=== PATIENT | female | born 1945 | race Caucasian/White ===

== ENCOUNTER → 2018-07-26 12:44 | Outpatient (CLI) | payer MEDICARE, OTHER, SELFPAY | PROVIDERS: Family Provider Family Medicine; PCP Family Medicine; Visit Provider Family Medicine | DX: R20.2 Paresthesia of skin (principal); M54.30 Sciatica, unspecified side | CPT/HCPCS: 95886; 95909 ==

== ENCOUNTER → 2018-09-26 09:17 | Outpatient (CLI) | payer MEDICARE, OTHER, SELFPAY ==
[2018-09-26 10:22] LABS: Alanine Aminotransferase 37 IU/L (9-52); Albumin 4.2 g/dL (3.5-5.0); Albumin Globulin Ratio 1.5 (1.0-2.8); Alkaline Phosphatase 57 U/L (38-126); Aspartate Aminotransferase 38 IU/L (14-36); Bilirubin Total 0.8 mg/dL (0.2-1.3); Bilirubin Unconjugated 0.8 mg/dL (0.0-1.1); Blood Urea Nitrogen 20 mg/dL (7-17); Carbon Dioxide 30 mmol/L (22-32); Chloride 103 mmol/L (98-107); Estimated Glomerular Filt Rate > 60.0 mL/min (>60); Globulin 2.8 g/dL (1.7-4.1); Glucose 90 mg/dL (80-110); HEMOLYSIS < 15 (0-50); Potassium 4.3 mmol/L (3.4-5.1); Sodium 143 mmol/L (137-145)
== END ==
PROVIDERS: Family Provider Physician Assistant; PCP Family Medicine; Visit Provider Podiatrist
DX: B35.1 Tinea unguium (principal)
CPT/HCPCS: 36415; 80048; 80076; 85048

== ENCOUNTER → 2018-12-03 14:06 | Outpatient (CLI) | payer MEDICARE, OTHER, SELFPAY ==
--- NOTE | 2018-12-03 | DI.MG.S_ITS ---
BILATERAL DIGITAL SCREENING MAMMOGRAM 3D/2D WITH CAD: 12/03/2018 CLINICAL: Routine screening. Comparison is made to exams dated: [facility], 11/16/2016 mammogram - [facility], and 11/16/2015 [facility]. The tissue of both breasts is heterogeneously dense. This may lower the sensitivity of mammography. Current study was also evaluated with a Computer Aided Detection (CAD) system. There is a focal asymmetry with a spiculated margin in the right breast at 1 o'clock posterior depth. No other significant masses, calcifications, or other findings are seen in either breast. IMPRESSION: INCOMPLETE: NEEDS ADDITIONAL IMAGING EVALUATION The focal asymmetry in the right breast is indeterminate. Additional views with possible ultrasound are recommended. This exam was interpreted at Station ID: [id number]. NOTE: For mammograms, a report in lay terms will be sent to the patient. Approximately 15% of breast malignancies will not be visualized mammographically. In the management of a palpable breast mass, a negative mammogram must not discourage biopsy of a clinically suspicious lesion. Electronically Signed By: Laura espinoza/leatha:12/03/2018 16:14:30 copy to: Artemio Ying letter sent: Additional Imaging Needed ACR BI-RADS Category 0: Incomplete [id number]
== END ==
PROVIDERS: Family Provider Physician Assistant; PCP Family Medicine; Visit Provider Nurse Practitioner Family
DX: Z12.31 Encounter for screening mammogram for malignant neoplasm of breast (principal)
CPT/HCPCS: 77063; 77067

== ENCOUNTER → 2018-12-10 09:16 | Outpatient (CLI) | payer MEDICARE, OTHER, SELFPAY ==
--- NOTE | 2018-12-10 | DI.MG.S_ITS ---
UNILATERAL RIGHT DIGITAL DIAGNOSTIC MAMMOGRAM 3D/2D WITH ADDITIONAL VIEWS: 12/10/2018 CLINICAL: Additional evaluation requested from prior study. Comparison is made to exams dated: 12/03/2018 mammogram, 11/29/2017 mammogram - [facility], and 11/16/2016 mammogram - [facility]. The tissue of right breast is heterogeneously dense. This may lower the sensitivity of mammography. There is 1 cm oval equal density mass with a spiculated margin in the right breast at 2 o'clock posterior depth. No other significant masses or calcifications are seen in the breast. IMPRESSION: INCOMPLETE: NEEDS ADDITIONAL IMAGING EVALUATION The 1 cm oval equal density mass in the right breast is indeterminate. An ultrasound is recommended. This exam was interpreted at Station ID: [id number]. NOTE: For mammograms, a report in lay terms will be sent to the patient. Approximately 15% of breast malignancies will not be visualized mammographically. In the management of a palpable breast mass, a negative mammogram must not discourage biopsy of a clinically suspicious lesion. Electronically Signed By: Flavio wick/leatha:12/10/2018 09:55:56 copy to: Artemio Ying letter sent: Need Ultrasound ACR BI-RADS Category 0: Incomplete [id number]
--- NOTE | 2018-12-10 | DI.US.S_ITS ---
LIMITED ULTRASOUND OF RIGHT BREAST AND AXILLA: 12/10/2018 CLINICAL: Additional evaluation requested from prior study. Comparison is made to exams dated: 12/10/2018 mammogram, 12/03/2018 mammogram, 11/29/2017 mammogram - [facility], and 11/16/2016 mammogram - [facility]. Color flow and real-time ultrasound of the right breast 2 o'clock, and axilla regions were performed on the areas of interest. There is 0.8 cm x 0.5 cm x 0.7 cm oval solid mass with an indistinct margin in the right breast at 2 o'clock middle depth. This oval solid mass is hypoechoic with posterior acoustic shadowing. This correlates with mammography findings. Color flow imaging demonstrates that there is no vascularity present. No abnormalities were seen sonographically in the right axilla. IMPRESSION: HIGHLY SUGGESTIVE OF MALIGNANCY The 0.8 cm x 0.5 cm x 0.7 cm oval solid mass in the right breast is highly suggestive of malignancy. An ultrasound guided biopsy is recommended. The findings were discussed with the patient at the conclusion of the study by Dr. Manzo. This exam was interpreted at Station ID: [id number]. Electronically Signed By: Flavio Joy M.D. ddcris/:12/10/2018 17:07:46 copy to: Artemio Ying letter sent: Biopsy Required Ultrasound BI-RADS: 5 Highly suggestive of malignancy
== END ==
PROVIDERS: Family Provider Physician Assistant; PCP Family Medicine; Visit Provider Nurse Practitioner Family
DX: R92.8 Other abnormal and inconclusive findings on diagnostic imaging of breast (principal); N63.12 Unspecified lump in the right breast, upper inner quadrant
CPT/HCPCS: 76642; 77065; G0279

== ENCOUNTER → 2018-12-14 08:10 | Outpatient (CLI) | payer MEDICARE, OTHER, SELFPAY ==
--- NOTE | 2018-12-14 | PATH_ITS ---
[facility] Accession Number: [id number] . 01 Material submitted: . RIGHT BREAST MASS . 01 Diagnosis: A. Right Breast Mass, Biopsy: Invasive (ductal) carcinoma, grade 2 of 3 ([place] combined histologic grade, total score of 6/9). - Nuclear pleomorphism: Intermediate. (2/3) - Mitotic grade: Low. (1/3) - Tubular differentiation: Little. (3/3) - Size of invasive carcinoma: Present on multiple cores, single largest dimension of 0.6 cm. - Ductal carcinoma in situ: Present. i. Nuclear grade: Intermediate. ii. Necrosis: Not identified. - Calcifications: Present, in association with invasive carcinoma and ductal carcinoma in situ. - Lymphatic invasion: Absent in this specimen. - Prognostic markers: - Estrogen receptor: Positive (percentage of tumor cells stainin%, staining intensity: strong). - Progesterone receptor: Positive (percentage of tumor cells stainin%, staining intensity: moderate to strong). - HER2 status: Negative for protein overexpression by immunohistochemistry (1+). MRV/12/18/2018 . 01 Comment: Dr. Clayton's office (reported to Alisson Reyes) is notified of the preliminary findings in this case on 12/18/2018 at 4:00 pm. . 01 Electronically signed: Pito Morin MD, Pathologist NPI- [id number] . 01 Gross description: . Received in formalin, labeled US BX breast perc wvac device, RT breast mass, are multiple fragments of bright yellow and red-brown fatty tissue (2.5 x 1.4 x 0.1 cm in aggregate). Filtered and entirely submitted in cassette A1. Note: Approximate total fixation time in formalin-49 hours, calculated using a collection date of 12/14/2018 with a collection time of 0821. (:[id number]) /MRV . 01 Microscopic: . The biopsy demonstrates an infiltrating mammary ductal carcinoma involving breast tissue. Receptor studies were performed on sections from the main block A1 by immunohistochemistry, with appropriately staining external controls; Invasive carcinoma stains as follows: ESTROGEN RECEPTOR (SP1): Positive (percentage tumor cell stainin%, staining intensity: strong, internal controls positive). PROGESTERONE RECEPTOR (1E2): Positive (percentage tumor cell stainin%, staining intensity moderate to strong, internal controls positive). HER-2 (4B5) by immunohistochemistry: Negative for protein overexpression (1+). . TECHNICAL NOTE: Internal controls are positive (for all 3 markers). Cold ischemic time is <5 minutes. The scoring criteria for breast biomarkers by immunohistochemstry is based on the current ASCO/CAP guidelines (Corina et al, Arch Pathol Lab Med 2010: 134(6): 907-922 / Carlos Lopez al, Arch Pathol Lab Med 2014: 138(2): 241-256). Deparaffinized sections of formalin fixed tissue (along with appropriate positive controls) are incubated with the above antibody(s). Using the automated Kinmundy stainer, tissue is incubated with the designated antibody* which is then localized by a non-biotin, dual polymer detection system. The external controls are reviewed for appropriate reactivity and found to be adequate. Results on the target call population are indicated above. These tests have not been validated on decalcified tissue. * This test was developed and its performance characteristics determined by [facility]. It has not been cleared or approved by the U.S. Food and Drug Administration. The FDA has determined that such clearance or approval is not necessary. This test is used for clinical purposes. It should not be regarded as investigational or for research. . 01 Pathologist provided ICD-10: C50.911 . 01 CPT . 392249, 997020, 155054, 606308 Performed at: [address] [facility], [place], [place] [id number] MD Flavio Townsend MD Phone: [phone]
--- NOTE | 2018-12-14 | DI.US.S_ITS ---
ULTRASOUND GUIDED BIOPSY RIGHT BREAST USING VACUUM DEVICE WITH MARKING DEVICE INSERTED AND POST MAMMOGRAPHIC AND ULTRASOUND IMAGIN12/14/2018 CLINICAL: Right breast mass. PATIENT CONSENT: Risks (minor bleeding, infection, vasovagal reaction and repeat procedure), benefits and alternatives were explained to the patient and written informed consent was obtained. Correlation is made to exams dated: 12/10/2018 ultrasound, 12/10/2018 mammogram, 12/03/2018 mammogram, 11/29/2017 mammogram - [facility], 11/16/2016 mammogram - [facility], and 11/16/2015 mammogram - [facility]. An ultrasound guided biopsy using real-time ultrasound was performed for the concerning 0.8 cm x 0.5 cm x 0.7 cm indistinct oval solid mass located in the right breast at 2 o'clock middle depth. This was described on the previous mammography and ultrasound reports. The skin was prepped in the usual manner. Local anesthetic was administered to the access site. A skin naun was made in the breast. The abnormality was approached from the medial aspect. A 13 gauge biopsy needle was placed adjacent to the abnormality under ultrasound guidance. Once the needle was documented to be in the correct location, six specimens were obtained using the Mammotome biopsy system. The patient received additional local anesthetic during the procedure. A [employer] Vision clip was inserted into the biopsy cavity. A skin closure strip and a sterile dressing were applied to the access site. Post procedure mammographic and ultrasound imaging demonstrates the location device at the targeted area and partial removal of the abnormality. The specimens were sent to the laboratory for pathological analysis. IMPRESSION: ULTRASOUND GUIDED BIOPSY MALIGNANT Ultrasound guided biopsy of the 0.8 cm x 0.5 cm x 0.7 cm solid mass in the right breast at 2 o'clock middle depth was successful. 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 Pathology results are concordant with imaging findings. This exam was interpreted at Station ID: [id number]. Meño Echevarria M.D. [facility],at/:12/21/2018 01:14:15 copy to: Artemio Ying
--- NOTE | 2018-12-14 11:00 | DI.MG.S_ITS ---
Patient Name: ANIBAL AYALA date: 1945 Sex: F Attending Physician: Indications: Date: 12/14/2018 08:25 At the request of: MEGAN HOFFMAN Procedure: MM diagnostic mammo [id number] UNILATERAL RIGHT DIGITAL DIAGNOSTIC MAMMOGRAM POST-NEEDLE BIOPSY: 12/14/2018 CLINICAL: Right breast mass. Comparison is made to exams dated: 12/10/2018 mammogram, 12/03/2018 mammogram, and 11/29/2017 mammogram - [facility]. The tissue of right breast is heterogeneously dense. This may lower the sensitivity of mammography. There is a [employer] marker clip in the appropriate position in the right breast at 2 o'clock middle depth. This marker clip placement is at the biopsy site. IMPRESSION: POST PROCEDURE MAMMOGRAM FOR MARKER PLACEMENT There was a successful marker clip placement in the right breast middle depth. Pathology results are pending. This exam was interpreted at Station ID: [id number]. NOTE: For mammograms, a report in lay terms will be sent to the patient. Approximately 15% of breast malignancies will not be visualized mammographically. In the management of a palpable breast mass, a negative mammogram must not discourage biopsy of a clinically suspicious lesion. Electronically Signed By: Meño Manzo M.D. sdh/:12/14/2018 17:31:37 copy to: Artemio Ying ACR BI-RADS Category Post-procedure mammogram for marker placement Continued Report - Page 2 of 2 Patient Name: ANIBAL AYALA date: 1945 Sex: F Attending Physician: Indications: Date: 12/14/2018 08:25 At the request of: MEGAN HOFFMAN Procedure: MM diagnostic mammo [id number]
== END ==
PROVIDERS: PCP Family Medicine; Visit Provider Nurse Practitioner Family
DX: C50.211 Malignant neoplasm of upper-inner quadrant of right female breast (principal); Z17.0 Estrogen receptor positive status [ER+]
CPT/HCPCS: 19083; 77065; 88305; 88360

== ENCOUNTER → 2019-01-25 10:15 | Outpatient (CLI) | payer MEDICARE, OTHER, SELFPAY ==
--- NOTE | 2019-01-25 | DI.RAD.S_ITS ---
This blank DEXA report has been sent in error by the PACS system. The correct and complete report will be forthcoming in 1-2 days. Thank you for your patience and understanding. Dictated by: Wayne Chu M.D. on 01/25/2019 at 13:07 Approved by: Wayne Chu M.D. on 01/25/2019 at 13:11
== END ==
PROVIDERS: PCP Family Medicine; Visit Provider Internal Medicine Rheumatology
DX: M81.0 Age-related osteoporosis without current pathological fracture (principal); Z78.0 Asymptomatic menopausal state; Z85.3 Personal history of malignant neoplasm of breast
CPT/HCPCS: 77080

== ENCOUNTER 2019-01-31 07:01 | Day surgery (SDC) | payer MEDICARE, OTHER, SELFPAY ==
[2019-01-21 08:23] VITALS: BMI 21.6
[2019-01-31] VITALS (7 sets, daily range): BP systolic 88–121; BP diastolic 46–76; PULSE 56–81; RESP 9–16; TEMP 36.1–36.7; O2SAT 95–100; BMI 20.9
--- NOTE | 2019-01-31 | DI.MG.S_ITS ---
SPECIMEN: 01/31/2019 CLINICAL: Right breast specimen. Correlation is made to exams dated: 01/31/2019 mammogram, 12/14/2018 ultrasound biopsy, 01/31/2019 localization, 12/14/2018 mammogram, 12/10/2018 ultrasound, and 12/10/2018 mammogram - [facility]. The specimen contains the targeted mass and localizing wire, as well as the targeted biopsy clip. IMPRESSION: SPECIMEN The specimen contains the targeted mass and localizing wire, as well as the targeted biopsy clip. Findings were discussed with Operating Room Nurse Jemma Bull by telephone by Dr. Holman at approximately 11:25 am on 01/31/2019, who conveyed the results to referring provider Dr. Khanh Turpin. This exam was interpreted at Station ID: [id number]. Nahum Holman M.D. ecl/:01/31/2019 11:38:15 copy to: Artemio Ying
--- NOTE | 2019-01-31 | DI.MG.S_ITS ---
UNILATERAL RIGHT DIGITAL DIAGNOSTIC MAMMOGRAM POST-NEEDLE BIOPSY: 01/31/2019 CLINICAL: Right breast cancer. Comparison is made to exams dated: 12/14/2018 ultrasound biopsy, 12/14/2018 mammogram, 12/10/2018 ultrasound, and 12/10/2018 mammogram - [facility]. The tissue of right breast is heterogeneously dense. This may lower the sensitivity of mammography. Post wire localization/ placement digital mammographic imaging was obtained and demonstrates the stiffener portion of the K[place] wire being immediately adjacent to the previously placed biopsy clip and passing through the targeted mass in the upper inner right breast. IMPRESSION: POST PROCEDURE MAMMOGRAM FOR MARKER PLACEMENT Post wire localization/ placement digital mammographic imaging was obtained and demonstrates the stiffener portion of the Kopans wire being immediately adjacent to the previously placed biopsy clip and passing through the targeted mass in the upper inner right breast. This exam was interpreted at Station ID: [id number]. NOTE: For mammograms, a report in lay terms will be sent to the patient. Approximately 15% of breast malignancies will not be visualized mammographically. In the management of a palpable breast mass, a negative mammogram must not discourage biopsy of a clinically suspicious lesion. Electronically Signed By: Nahum Holman M.D. ecl/:01/31/2019 11:34:19 copy to: Artemio MARTINEZ BI-RADS Category Post-procedure mammogram for marker placement
--- NOTE | 2019-01-31 | PATH_ITS ---
[facility] Accession Number: [id number] . 01 Material submitted: . PART A: breast - RIGHT BREAST MASS PART B: breast - RIGHT BREAST TISSUE NEAR TIP OF WIRE PART C: lymph node - RIGHT AXILLA, SENTINEL NODE #[id number] PART D: axilla - ADDITIONAL RIGHT AXILLARY TISSUE WITH NODES . 01 Clinical history: . A: LONG STITCH IS MEDIAL,SHORT STITCH IS SUPERIOR. TO RADIOLOGY THEN PATHOLOGY . 01 Diagnosis: A. Right Breast Mass, Lumpectomy: Invasive (ductal) carcinoma, grade 2 of 3 ([place] combined histologic grade, total score is 6/9): - Tumor size (invasive component): 1.0 cm, by microscopic measurement. - Nuclear pleomorphism: High. (3/3) - Mitotic rate: Low. (1/3) - Tubular differentiation: Moderate degree. (2/3) - Ductal carcinoma in situ (DCIS): i. Present. - Nuclear grade: Intermediate. - Necrosis: Present (comedo). ii. Extent: Present within tissue slices 6 and 8-11, spanning approximately 1.4 cm. - Calcifications: Present (in association with DCIS). - Lymphatic invasion: Not identified. - Resection margins: i. Invasive carcinoma: Negative; 0.4 cm from the anterior margin, 0.4 cm from the posterior margin, and more than 1 cm from the remaining margins. ii. DCIS: Negative, but very close to two margins: Less than 0.1 cm from the posterior margin (slice 9, discontinuously over a linear stretch of 0.3 cm), less than 0.1 cm from the lateral margin (slice 10, discontinuously over a linear stretch of 0.2 cm, see comment), 0.5 cm from the anterior margin, and more than 1 cm from the remaining margins. - Prognostic markers performed on prior biopsy ([facility] [id number]) i. Estrogen receptor: Positive. Progesterone receptor: Positive. HER-2 status: Negative for protein overexpression by IHC. - Regional lymph node status (see parts C and D below): 7 lymph nodes (including 3 sentinel lymph nodes), negative for malignancy. - Additional findings: Skin and nipple/areolar complex: Not present. Skeletal muscle: Not present. Biopsy site: Present. - Other findings: Flat epithelial atypia, apocrine metaplasia, focal usual ductal hyperplasia, columnar cell change/hyperplasia, and microcysts. - Pathologic stage: pT1b pN0 . B. 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 Extent: Spanning two slices, up to 0.8 cm in linear extent. Margins: Present at cauterized tissue edges. . C. Right Axilla [place] Lymph Nodes, Excisional Biopsy: Three sentinel lymph nodes, negative for malignancy (0/3). . D. Additional Right Axillary Tissue With Nodes, Dissection: Four lymph nodes, negative for malignancy (0/4). NHT/02/06/2019 . 01 Comment: Part A. In the lumpectomy specimen, within the area of definite DCIS that is approaching the lateral margin, cauterized possible DCIS is present less than 0.5 mm away from the lateral margin; however, extensive cautery artifact limits definite histologic assessment. Part B. The specimen labeled tissue near tip of wire is unoriented, hence it is difficult to determine which margin is involved by the residual DCIS. Clinical correlation is necessary. . 01 Electronically signed: Pito Morin MD, Pathologist NPI- [id number] . 01 Gross description: . (A) Received: In formalin, labeled right breast mass, long stitch is medial, short stitch is superior. Specimen: One right partial mastectomy. Weight: 29 grams. Measurement: 2.4 cm anterior to posterior, 5.0 cm medial to lateral, and 5.3 cm superior to inferior. Skin Ellipse: Absent. Wire: Present, penetrating at the central medial anterior aspect and terminating in the central lateral side. Margins: Oriented by surgeon with short superior suture, long medial suture, and inked as follows: posterior=black; anterior=purple; superior=blue; inferior=green; medial=yellow; lateral=orange. Sliced: Superior to inferior into 19 slices. Lesion: 1. Description: Brennan-white solid firm irregular mass with a fer-shaped biopsy clip identified in slice #9. Size: 1.0 x 1.0 x 0.8 cm. Slices Involved: Slices #8 through #11. Biopsy Site: Absent. Distance to Margins: 0.6 cm from the anterior margin, 0.5 cm from the posterior margin, 2.1 cm from the superior margin, 2.3 cm from the inferior margin, 1.6 cm from the medial margin, and 2.5 cm from the lateral margin. Other: A fibrous cystic area (2.2 x 1.7 x 0.7 cm) is identified within slices #2 through #11 involving the lateral resection margin. This area is 1.6 cm from the mass. The remaining parenchyma is yellow lobulated adipose tissue. No additional discrete masses or lesions are grossly identified. Fixation Time: The specimen was placed in formalin on 01/31/2019 with no time given. The approximate total fixation time is calculated to be 69 hours and 30 minutes. Sections: A1: Slice 1, sales representative publications superior end of specimen, perpendicular. A2: Slice 3, bisected, lateral half. A3: Slice 5, bisected, lateral half. A4-A5: Slice 6, entirely submitted (lateral margin in A5). A6-A7: Slice 7, entirely submitted, adjacent to mass,end of loc wire. A8: Slice 8 with mass, lateral margin, involved by localization wire. A9-A10: Slice 9 with mass (medial two-thirds, sales representative publications sections, A9 represents closest medial margin), biopsy site. A11: Slice 10 with mass, lateral half. A12: Slice 11, lateral half. A13-A14: Slice 12, inferior to mass, entirely submitted. A15: Slice 19 (inferior end of specimen, perpendicular, repr.) A16: Slice 8, entirely submitted (medial margin). A17: Slice 9, entirely submitted (lateral margin). A18: Slice 10, entirely submitted (medial margin). A19: Slice 11, entirely submitted (medial margin). A20: Slice 1, remainder. A21: Slice 2, remainder. A22: Slice 4, sales representative publications. A23: Slice 13, sales representative publications. A24: Slice 14, sales representative publications. A25: Slice 16, entirely submitted. A26: Slice 17, entirely submitted. A27: Slice 19, remainder. Note: This specimen has been reviewed by Dr. Yenny Morin. . (B) Received in formalin, labeled tissue near tip of wire, right breast, is an unoriented piece of densely fibrous and fatty tissue (1 gram, 3.0 x 1.7 x 0.7 cm) with no overlying skin. The tissue is inked black and serially sectioned into eight slices. The cut surface is brennan-white and smooth. No nodules, masses or lesions are identified. Sections: (B1) slice 1, perpendicular; (B2) slices 2 and 3; (B3) slices 4 and 5; (B4) slices 6 and 7; (B5) slice 8, perpendicular. The specimen is entirely submitted. (C) Received in formalin, labeled right axilla sentinel node #[id number], are multiple pieces of sheridan-yellow adipose tissue (3.2 x 1.8 x 0.5 cm) containing multiple lymph nodes (0.5 x 0.4 x 0.3 cm-1.3 x 0.8 x 0.4 cm). Sections: (C1) one bisected lymph node; (C2) one trisected lymph node; (C3) one serially sectioned lymph node. (D) Received in formalin, labeled additional R axillary tissue with nodes, are multiple pieces of sheridan-yellow adipose tissue (4.3 x 2.7 x 1.2 cm in aggregate) containing multiple possible lymph nodes (0.2 x 0.1 x 0.1 cm-1.2 x 0.7 x 0.5 cm). Cassettes: (D1) multiple intact possible lymph nodes; (D2) one serially sectioned lymph node. (JM:[id number]) (MT:[id number]) /[facility] . 01 Pathologist provided ICD-10: C50.911 . 01 CPT . 658001, 476683, [id number], 399568 Performed at: 01 [facility] [address], [place], [place] [id number] MD Flavio Townsend MD Phone: [phone]
--- NOTE | 2019-01-31 07:05 | DI.NM.S_ITS ---
PROCEDURE: NM SENTINEL NODE W IMAGING RADIOPHARMACEUTICAL: 1.0 mCi Millipore filtered Tc-99m sulfur colloid. INDICATIONS: sentinel node mapping pre biopsy right breast TECHNIQUE: The area around the nipple was prepped and draped in a sterile fashion. Tc-99m sulfur colloid was injected intra-dermally in the outer edge of the areola in the right breast. Images were obtained subsequently. A body contour outline was obtained. FINDINGS: There is/are two lymph node(s) in the ipsilateral axilla, which is marked on the skin and the images for referring physician. IMPRESSION: Administration of radiotracer into the right breast periareolar region for intra-operative sentinel lymph node localization. Dictated by: Martha Valdes MD, PhD on 01/31/2019 at 9:15 Approved by: Martha Valdes MD, PhD on 01/31/2019 at 9:17
--- NOTE | 2019-01-31 07:05 | DI.US.S_ITS ---
ULTRASOUND GUIDED WIRE LOCALIZATION RIGHT BREAST WITH POST DIGITAL MAMMOGRAPHIC IMAGIN01/31/2019 CLINICAL: Pre op wire localization with ultrasound. Correlation is made to exams dated: 01/31/2019 mammogram, 12/14/2018 ultrasound biopsy, 12/14/2018 mammogram, 12/10/2018 ultrasound, 12/10/2018 mammogram, and 12/03/2018 mammogram - [facility]. A wire localization using ultrasound guidance was performed for the concerning mass located in the right breast at 2 o'clock. This was described on the previous ultrasound report. The skin was prepped in the usual manner. 5 mL of 1% lidocaine and 5 mL of 1% lidocaine with epinephrine were used for local anesthesia. The localization was approached from the medial aspect. A 7 cm Kopans hook wire was inserted through the targeted mass adjacent to the echogenic biopsy marker under ultrasound guidance. A skin adhesive was applied to the access site. Post placement digital mammographic imaging was obtained and demonstrates the stiffener portion of the Kopans wire immediately adjacent to the previously placed biopsy clip through the targeted mass. IMPRESSION: WIRE LOCALIZATION Wire localization for the mass in the right breast at 2 o'clock was successful with no apparent post procedure complications. This exam was interpreted at Station ID: [id number]. Nahum Holman M.D. ecl/:01/31/2019 11:31:02 copy to: Artemio Ying
--- NOTE | 2019-01-31 10:01 | SUR.OPER ---
Supine on padded OR bed, head on pillow, arms secured on padded arm boards at <90 degrees abduction, legs uncrossed, safety belt at thigh, tape over blanket over lower legs.
--- NOTE | 2019-01-31 10:25 | PM.PREOP ---
Pre-operative Note Interval Note History & Physical reviewed/Exam performed by Physician: Yes Changes to H&P: Yes H&P completed within 30 days and has changed as indicated here:: Successful needle location sentinel node mapping performed
[2019-01-31] MEDS: CEFAZOLIN 2 GM/100 ML FROZ.PIGGY IV (10:32)
[2019-01-31] MEDS: BUPIVACAINE 0.5% (PF) VIAL 30 ML INJ (10:52)
--- NOTE | 2019-01-31 11:06 | SUR.OPER ---
GLASSES IN LABELED CONTAINER TO PACU WITH PATIENT
--- NOTE | 2019-01-31 12:24 | P.OP_ITS ---
Operative Date/Time/Diagnoses Date of procedure: 01/31/19 Time of procedure: 12:15 Pre-op diagnosis: Right-sided breast cancer Post-op diagnosis: same Procedure & Clinicians Procedure: Needle localization and lumpectomy with sentinel node biopsy right breast Same procedure as scheduled: Yes Indications: Breast cancer right breast. Patient opted for breast conservation therapy Surgeon: Khanh Turpin Click Yes if Unassisted: Yes Anesthesia Type: General Operative Notes Findings: Specimen contained clip and needle. Two sentinel nodes removed. additional alyssa tissue also removed adjacent to the sentinel nodes. Closure Type: primary Specimen(s): other (Breast mass and axillary nodes) Prosthetic devices, grafts, tissues, transplants, or devices: None Estimated Blood Loss (mL): 10 Blood products transfused: none Procedure in detail: The patient is placed supine on the operating room table underwent general LMA anesthesia. She was prepped and draped in the usual fashion taking great care not to dislodge the needle. Curvilinear incision was made medial to the needle insertion overlying the breast abnormality and clip. Was carried down into the immediate subcu and staying in that layer I dissected all along the anterior wall of the breast trying to stay at a breast tissue. Using the needle as a guide and then dissected down and removed a portion of the pectoralis fascia with specimen. As the needle tip was right at the edge of my specimen I took a small amount of tissue adjacent to it. I then mobilized breast tissue in order to close the space. I released the skin overlying it to remove a pucker. The subcu was closed with interrupted 3 0 Vicryl. The skin was closed running 4 0 Vicryl subcuticular stitch and attention was then turned to the axilla. Local anesthetic was infiltrated and a transverse incision made across the axilla below the hair-bearing area. Was carried down into the axilla proper. Using the Navigator probe as a guide I removed at least 2 sentinel nodes. The counts on these at 10 seconds were just over 7700 and 1100. Careful examination of the axilla failed to reveal any other areas that had counts greater than 77. I removed some additional tissue adjacent to these nodes and though there was no counts in them there were visible nodes and I submitted this tissue separately. Hemostasis was achieved. The axilla was closed with interrupted 3 0 Vicryl. The subcu was closed with interrupted 3 0 Vicryl. The skin was closed with a running 4 0 Vicryl subcuticular stitch. The wounds were cleaned and Steri- Strips along with Mastisol applied. dressings were applied the patient was awakened and extubated taken recovery area in good condition. Complications: none Condition: stable Disposition: PACU Plan for aftercare: Follow-up in the office
== END 2019-01-31 13:39 | disposition home or self-care (01) ==
PROVIDERS: PCP Family Medicine; Visit Provider Specialist
PROC: (CPT 19301; principal; 2019-01-31 10:30)
DX: C50.911 Malignant neoplasm of unspecified site of right female breast (principal); Z17.0 Estrogen receptor positive status [ER+]
CPT/HCPCS: 19301; 38500; 19285; 76098; 77065; 78195; 88305; 88307; A9541; J0690; J1100; J1885; J2250; J2405; J2704; J3010

== ENCOUNTER 2019-02-20 06:42 | Day surgery (SDC) | payer MEDICARE, OTHER, SELFPAY ==
[2019-02-14 10:54] VITALS: BMI 21.6
--- NOTE | 2019-02-20 | PATH_ITS ---
[facility] Accession Number: [id number] . 01 Material submitted: . PART A: breast - RIGHT BREAST TISSUE PART B: breast - RIGHT BREAST ADDITIONAL LATERAL MARGINS . 01 Clinical history: . A: LONG STITCH LATERAL, SHORT STITCH SUPERIOR B: ADDITIONAL LATERAL MARGINS STITCH HERNANDEZ EDGE OF BIOPSY . 02 Diagnosis: A. Right Breast Tissue, Reexcision: Residual ductal carcinoma in situ with the following features: Extent: At least 8 mm (measured on slide A19, involving 2 of 22 blocks of this entirely submitted specimen. Architectural pattern: Cribriform. Nuclear grade: Intermediate. Necrosis: Not identified. Margins: Please see comment. Extensive surgical site changes present. Negative for invasive carcinoma. . B. Right Breast, Additional Lateral Margins, Reexcision: Residual ductal carcinoma in situ with the following features: Extent: At least 4 mm (slide B10) involving 2 of 10 blocks of this entirely submitted specimen. Architectural pattern: Cribriform and comedo. Nuclear grade: Intermediate. Necrosis: Present, comedo. Margins: DCIS is free of lateral margin by 1 mm, spanning 1 mm. Negative for invasive carcinoma. [facility]/02/26/2019 . 02 Comment: Part A) Given the additionally submitted lateral margin (part B), the DCIS seen in part A is widely free of margins (at least 10 mm). . 02 Electronically signed: . Luis Enrique Saldana MD, PhD, Pathologist NPI- [id number] . 01 Gross description: . (A) Received: In formalin, labeled right breast tissue, long stitch lateral, short stitch superior. Specimen: Right partial mastectomy: Weight: 16 grams. Measurement: 5.5 cm anterior to posterior, up to 4.5 cm superior to inferior. Skin ellipse: Present, measuring 3.6 x 0.7 cm. Wire: Absent. Margins: Oriented by surgeon with short superior suture, long lateral suture, and inked as follows: posterior=black; superior=blue; inferior=green; medial=yellow; lateral=orange. Sliced: Anterior to posterior into 14 slices. Lesions: No nodules, masses or lesions are identified. Other: The parenchyma is densely fibrous with a diffusely gritty texture. A minimal amount of lobulated adipose tissue is present. The skin is sheridan-white and contains a linear scar from tip to tip. Fixation time: The specimen was placed in formalin on 02/20/2019 with no time given. The approximate total fixation time is calculated to be 34 hours 30 minutes. Sections: A1-A2: Slice 1, anterior end of specimen, perpendicular. A3: Slice 2, bisected. A4: Slice 3, bisected. A5: Slice 4, bisected. A6-A7: Slice 5, bisected and submitted superior to inferior. A8-A9: Slice 6, bisected and submitted superior to inferior. A10-A11: Slice 7, bisected and submitted superior to inferior. A12-A13: Slice 8, bisected and submitted superior to inferior. A14-A15: Slice 9, bisected and submitted superior to inferior. A16-A17: Slice 10, bisected and submitted superior to inferior. A18: Slice 11. A19: Slice 12. A20: Slice 13. A21-A22: Slice 14, posterior end of specimen, perpendicular. (B) Received: In formalin, labeled right breast additional lateral margins, stitch hernandez edge of biopsy. Specimen=Right partial mastectomy. Weight: 4 grams. Measurement: 4.0 x 2.5 x 0.9 cm. Skin ellipse: Absent. Wire: Absent. Margins: Oriented by suture with suture marking edge of biopsy, and inked as follows: edge of biopsy=black; opposite side/presumed new lateral margin=orange. Sliced: Along the long axis into 10 slices. Lesions: No nodules, masses or lesions are identified. Other: The parenchyma is densely fibrous. Fixation time: The specimen was placed in formalin on 02/20/2019 with no time given. Approximate total fixation time is calculated to be 34 hours 30 minutes. Sections: B1: Slice 1, perpendicular. B2: Slice 2. B3: Slice 3. B4: Slice 4. B5: Slice 5. B6: Slice 6. B7: Slice 7. B8: Slice 8. B9: Slice 9. B10: Slice 10, perpendicular. (JM:[id number]) /[facility]V . 02 Pathologist provided ICD-10: D05.10 . 02 CPT . 102208, [id number] Performed at: 01 [facility] [address] [place] [address], [place], [place] [id number] MD Flavio Townsend MD Phone: [phone] Performed at: 02 [facility] [address] [place] [id number] MD Josefina Bryant MD Phone: [phone]
[2019-02-20 07:05] VITALS: BP 120/60; PULSE 88; RESP 15; TEMP 36.5; O2SAT 97; BMI 21.6
[2019-02-20] MEDS: LACTATED RINGERS 1,000 ML 42 ML IV ×2 (07:13→09:32)
--- NOTE | 2019-02-20 08:57 | PM.PREOP ---
Pre-operative Note Interval Note History & Physical reviewed/Exam performed by Physician: Yes Changes to H&P: Yes H&P completed within 30 days and has changed as indicated here:: see notes 01/31 and 02/13. Patient's lungs remain clear. Heart RRR. biopsy sites without cellulitis.
[2019-02-20] MEDS: CEFAZOLIN 2 GM/100 ML FROZ.PIGGY IV (09:02)
--- NOTE | 2019-02-20 09:18 | SUR.OPER ---
Supine on padded OR bed, head on pillow, arms secured on padded arm boards at <90 degrees abduction, legs uncrossed, safety belt at thigh, tape over blanket over lower legs.
[2019-02-20] MEDS: BUPIVACAINE 0.5% (PF) VIAL 30 ML INJ (09:33)
[2019-02-20 09:55] VITALS: BP 120/68; PULSE 78; RESP 18; TEMP 36.6; O2SAT 99
--- NOTE | 2019-02-20 09:56 | PM.OP.1 ---
Operative Date/Time/Diagnoses Date of procedure: 02/20/19 Time of procedure: 09:56 Pre-op diagnosis: Positive DCIS margin on prior lumpectomy Post-op diagnosis: same Procedure & Clinicians Procedure: Reexcision of biopsy site Same procedure as scheduled: Yes Indications: Positive margin on lumpectomy specimen Surgeon: Khanh Turpin Click Yes if Unassisted: Yes Anesthesia Type: General Operative Notes Findings: The removed entire lateral wall and additional tissue was well. included posterior wall in specimen. Muscle wall exposed. Clips applied at margins of muscle and biopsy cavity Closure Type: primary Specimen(s): other (Breast tissue including elipse of skin) Prosthetic devices, grafts, tissues, transplants, or devices: None Estimated Blood Loss (mL): 15 Procedure in detail: The patient is placed supine on the operating room table underwent general LMA anesthesia. She was prepped and draped in the usual fashion. Ellipse was made around the prior incision and carried into the subcu tissues. Using entirely sharp dissection the entire wall (with the thickest portion principally medially) and posterior of the prior biopsy cavity was removed. meticulous hemostasis was achieved. clips were placed at the muscle margins of the resection. They were also placed at the new margin of the lumpectomy site. The space was closed with interrupted 3 0 Vicryl. the skin was closed with a running 4 0 Vicryl subcuticular stitch and Steri-Strips. Dressing was applied. Patient tolerated the procedure well. local anesthetic was infiltrated around the incision at conclusion. Complications: none Condition: stable Disposition: PACU Plan for aftercare: Follow-up in the office
[2019-02-20 10:00] VITALS: BP 106/68; PULSE 64; RESP 10; O2SAT 98
[2019-02-20 10:05] VITALS: BP 109/66; PULSE 61; RESP 8; O2SAT 99
[2019-02-20 10:24] VITALS: BP 130/78; PULSE 77; RESP 11; TEMP 36.5; O2SAT 99
[2019-02-20] MEDS: HYDROCODONE/ACET 5/325 TABLET 1 TAB PO (10:30)
[2019-02-20 10:40] VITALS: BP 128/77; PULSE 77; RESP 12; TEMP 36.6; O2SAT 98
--- NOTE | 2019-02-20 10:57 | SUR.PHASEII ---
PT GIVEN PAIN PILL FOR C/O STINGING A LITTLE BIT STATES PAIN IS TOLERABLE AND EXPRESSED DESIRE TO GO HOME, TOLERATING ORAL FLUIDS, D/C INSTRUCTIONS REVIEWED WITH PT AND FAMILY MEMBER WITH VERBALIZED UNDERSTANDING.
== END 2019-02-20 10:56 ==
LOC: OR 06:44
PROVIDERS: PCP Family Medicine; Visit Provider Specialist
PROC: (CPT 19301; principal; 2019-02-20 07:45)
DX: D05.11 Intraductal carcinoma in situ of right breast (principal); G62.9 Polyneuropathy, unspecified
CPT/HCPCS: 19301; 88307; J0690; J1100; J2405; J2704; J3010

== ENCOUNTER → 2019-05-18 08:13 | Outpatient (CLI) | payer MEDICARE, OTHER, SELFPAY ==
[2019-05-18 08:48] LABS: Hemoglobin A1C% w Est Avg Glu 5.5 % (4.0-6.0)
[2019-05-18 08:56] LABS: Alanine Aminotransferase 31 IU/L (9-52); Albumin 4.5 g/dL (3.5-5.0); Albumin Globulin Ratio 1.5 (1.0-2.8); Alkaline Phosphatase 61 U/L (38-126); Aspartate Aminotransferase 31 IU/L (14-36); BUN Creatinine Ratio 31.3 (6-22); Bilirubin Total 0.7 mg/dL (0.2-1.3); Blood Urea Nitrogen 25 mg/dL (7-17); Calcium 9.4 mg/dL (8.4-10.2); Carbon Dioxide 30 mmol/L (22-32); Chloride 103 mmol/L (98-107); Cholesterol 186 mg/dL (140-199); Creatinine Urine Random 178.6 mg/dL; Estimated Glomerular Filt Rate > 60.0 mL/min (>60); Glucose 99 mg/dL (80-110); HDL Cholesterol 80 mg/dL (40-60); HEMOLYSIS < 15 (0-50); LDL Cholesterol Calculated 94 mg/dL (<100); Potassium 4.1 mmol/L (3.4-5.1); Protein (Total) Urine Random 8 mg/dL (0-12); Protein Creatinine Ratio Urine 0.04 GRAM/24H; Sodium 140 mmol/L (137-145); Total Protein 7.5 g/dL (6.3-8.2); Triglycerides 62 mg/dL (35-150); VLDL Cholesterol Calculated 12 mg/dL (2-30)
== END ==
PROVIDERS: PCP Family Medicine; Referring Provider Internal Medicine; Visit Provider Family Medicine
DX: R73.03 Prediabetes (principal)
CPT/HCPCS: 36415; 80053; 80061; 82570; 83036; 84156

== ENCOUNTER → 2019-10-09 11:20 | Oncology outpatient (ONC) | payer MEDICARE, OTHER, SELFPAY ==
[2018-12-26 08:46] VITALS: BP 122/72; PULSE 72; RESP 18; TEMP 36.6; O2SAT 100
--- NOTE | 2018-12-26 09:30 | ONC.SCHED ---
Patient to call with surgery date after 01/14 Papi consult.
--- NOTE | 2018-12-26 09:37 | P.CONONC_ITS ---
History of Present Illness - Data of Consult Consult date: 12/26/18 Primary Care Provider: Artemio Ying MD - Consult Narrative Narrative: Diagnosis: Right breast cancer, clinically T1b N0 ER/OH positive, HER2 negative History of present illness: Sara Murphy is a 73 year old female who is referred for further evaluation newly diagnosed breast cancer. Patient reports that she had been feeling quite well and had no specific complaints. She had a screening mammogram done that showed an abnormality in the right breast. An ultrasound confirmed lesion at the 2 o'clock position that measured about 8 mm in size. A ultrasound-guided biopsy was obtained on December 14. Pathology showed an invasive ductal carcinoma grade 2. It was ER positive and OH positive. HER2 was negative. She is scheduled to meet with a surgeon in on January 14. She otherwise has been feeling well. She denies any new aches or pains. She has not noted any adenopathy. No shortness of breath or cough. No GI complaints. She has been using some vaginal estrogen about once a week. In the past, she did take by identical hormones. Her past medical history is notable for osteopenia. She did have a prior D&C many years ago. She has otherwise been quite healthy. She currently is on no prescription medications but does take some calcium vitamin D and a bone supplement. She reports allergy to alendronate and to an antifungal drugs that she took for her toe nails Family history is notable for a father with bladder cancer at age 90. Her father also had skin cancer. Social history: She is . She is retired teacher. She does not smoke or use alcohol. CC: Jigar Glover MD Home Medications and Allergies Home Medications Medication Instructions Recorded Confirmed Type cholecalciferol (vitamin D3) 1,000 #0 12/13/17 History estradiol [Climara] #0 12/13/17 History calcium-vits M5-S-C2-minerals 1 tab PO DAILY 12/26/18 12/26/18 History [Bone Essentials] cyclosporine [Restasis] 12/26/18 History Allergies Allergy/AdvReac Type Severity Reaction Status Date / Time No Known Allergies Allergy Uncoded 02/07/18 11:49 Medical History - Social History Smoking Status: Never smoker Substance Use Type: does not use Alcohol Intake Frequency: 0-2 drinks per day Current Occupational Status: retired Exam Vital signs: Vital Signs Temp Pulse Resp BP Pulse Ox 12/26/18 08:46 98 F 72 18 122/72 100 Intake and Output 12/25/18 12/26/18 12/26/18 23:59 07:59 15:59 Other: Weight 54.9 kg Patient Weight 12/27/18 07:59 Weight 54.9 kg - Constitutional positive no acute distress, positive average body habitus - Routine HEENT Exam Head: Present: normocephalic, atraumatic Eye: Present: EOMI, PERRL. Absent: conjunctival icterus, scleral injection ENT: Present: mucous membranes moist, oropharynx clear - Routine Neck Exam Present: supple. Absent: lymphadenopathy, thyromegaly - Routine Chest/Breast/Axilla Exam Axillae: Absent: lymphadenopathy Comments: In the right breast, she has an area of ecchymoses in the upper inner quadrant. There is a small nodule that is palpable. It is hard to tell if this is hematoma or her tumor. I do not feel any axillary adenopathy. - Routine Respiratory Exam Present: Clear to auscultation bilaterally. Absent: rales, wheezes - Routine Cardiovascular Exam Present: RRR, S1, S2. Absent: murmur - Routine Abdominal Exam Present: soft, normoactive bowel sounds. Absent: tenderness, organomegaly, mass - Routine Extremities Exam Absent: cyanosis, clubbing, edema - Routine Back/Spine Exam Back/Spine: Absent: paraspinal tenderness, vertebral tenderness - Routine Skin Exam Present: intact. Absent: petechiae, rash - Routine Neurological Exam Present: alert, oriented X3 - Routine Psychiatric Exam Present: normal affect, normal thought process Results - Imaging Additional studies: Procedures Closed [endoscopic] biopsy of large intestine (12/12/13) Assessment and Plan (1) Breast cancer Current visit: Yes Status: Acute 73-year-old woman with a new diagnosis of small ER positive breast cancer. Clinically, it appears to be T1b N0. She does have an appointment in 2-3 weeks with a surgeon. I suspect that she will be a candidate for lumpectomy followed by radiation. I did explain that mastectomy was an option for patients to desired it or who for whatever reason did not want radiation. With regards to systemic therapy, I do not believe that she will need chemother apy unless she were found to have a positive sentinel node. Instead, adjuvant hormone therapy would be recommended. I a reviewed the options of tamoxifen or aromatase inhibitors. We talked about the risk for blood clotting and endometrial problems with tamoxifen as well as the risk for worsening osteoporosis with aromatase inhibitors. I explained that in generally II his inhibitors were better tolerated and slightly more effective than tamoxifen in her usual 1st choice. She does have a history of osteoporosis. If that worsens, she may benefit from IV bisphosphonate or perhaps Prolia. She has been using some topical estrogen and I recommended that she stop this. She will return to clinic here after her surgery. Will review her pathology at that time.
--- NOTE | 2019-03-14 10:57 | ONC.SCHED ---
Patient wanted it noted in her file that she has Osteopenia and Osteoporosis. Msg sent to Dr. Glover. Also patient starting Rad Onc mapping next week
[2019-06-11 13:21] VITALS: BP 106/60; PULSE 83; RESP 18; TEMP 36.6; O2SAT 96
--- NOTE | 2019-06-11 14:04 | ONC.PN ---
PN -Subjective Interval history: Right breast cancer, T1b N0 ER/MA positive, HER2 negative Previous treatment: 1. Lumpectomy and sentinel node biopsy in January 2019. Her tumor measured 1.0 cm. Seven lymph nodes were sampled all of which were negative for metastatic disease. 2. Adjuvant radiation Interval history: Patient is a 73-year-old woman who returns today for follow-up. She has recently been diagnosed with a right-sided small, ER positive breast cancer. Since her last visit, she has undergone a lumpectomy in January. She has found have a 1.0 cm tumor. Seven lymph nodes were negative. 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 She went on to have a re-resection couple of weeks later. Postoperatively, she has recovered well. She then went on to adjuvant radiation which she also tolerated with only some minimal erythema the skin. She is not having any pain in the breast. Strength and energy level have been normal. No fevers chills or sweats. No shortness of breath or cough. No GI complaints. She otherwise feels well today and denies any other changes in her health. Her past medical history is notable for osteopenia and osteoporosis. She did have a prior D&C many years ago. She has otherwise been quite healthy. She currently is on no prescription medications but does take some calcium vitamin D and a bone supplement. - Patient Self-Reported Symptoms SR Constitution: Weight loss/gain Home Medications and Allergies Home Medications Medication Instructions Recorded Confirmed Type cholecalciferol (vitamin D3) 1,000 units PO DAILY #0 12/13/17 06/11/19 History Bone Essentials 1 tab PO DAILY 12/26/18 06/11/19 History Restasis 1 % EYE-BOTH BID 12/26/18 06/11/19 History vitamin B complex 1 tab PO DAILY 12/26/18 06/11/19 History azelaic acid 15 % topical gel 1 applictn TOP BID 01/14/19 06/11/19 History ciclopirox 8 % topical solution 1 applictn TOP BEDTIME 01/14/19 06/11/19 History anastrozole 1 mg PO DAILY 90 Days #90 tab 06/11/19 Rx Allergies Allergy/AdvReac Type Severity Reaction Status Date / Time alendronate sodium Allergy Mild Verified 02/27/19 11:53 terbinafine Allergy Mild Verified 02/27/19 11:53 Exam Vital signs: Vital Signs Temp Pulse Resp BP Pulse Ox 06/11/19 13:21 97.8 F 83 18 106/60 96 Intake and Output 06/10/19 06/11/19 06/11/19 23:59 07:59 15:59 Other: Weight 54.6 kg Patient Weight 06/11/19 23:59 Weight 54.6 kg - Constitutional positive no acute distress, positive average body habitus Comments: She is not further examined. Results - Imaging Additional studies: Procedures Closed [endoscopic] biopsy of large intestine (12/12/13) Assessment and Plan (1) Breast cancer Current visit: Yes Status: Acute 73-year-old woman with a new diagnosis of small ER positive breast cancer. Her tumor is 1.0 cm in size. Seven lymph nodes were negative. Because of the small size, I do not think that would be any role for adjuvant chemotherapy. Instead, I think she is a candidate for adjuvant hormone therapy. Today, we talked about both tamoxifen and aromatase inhibitors. I did point out that the aromatase inhibitors were slightly more effective than tamoxifen. In general, they are slightly better tolerated. Both drugs have the potential for hot flashes, irritability and mood changes. With tamoxifen, there is a risk for thrombotic complications and abnormal uterine bleeding or uterine cancer. With the aromatase inhibitors, there is no known risk for thrombotic complications or uterine cancer but instead risk for osteoporosis and musculoskeletal complaints. For people who develop osteoporosis, a drug such as Reclast or Prolia can mitigate that affect. She previously has been on alendronate. She just stopped a little bit more than a year ago. She would favor treatment with an aromatase inhibitor along with a bone strengthening drug. I have given her prescription for anastrozole. We will also plan on treating with Prolia every 6 months. She will return to clinic in about a month or so for follow-up. If she is doing well at that time, we will probably switch to every 3 month followups. 40 minutes was spent with the patient the majority in counseling.
--- NOTE | 2019-06-24 09:16 | PC.NURSE ---
DENOSUMAB: patient called with concerns of risk of femur fracture since she was told by Dr. Glover plan is to do prolia injections for five years after she received alendronate for 5 years. This nurse told her to please talk with Dr. Glover about the risks and benefits at her next F/U which is still before the planned first injection.
[2019-07-03 09:53] VITALS: BP 137/73; PULSE 76; RESP 16; TEMP 36.6; O2SAT 96
--- NOTE | 2019-07-03 10:15 | ONC.PN ---
PN -Subjective Interval history: Right breast cancer, T1b N0 ER/[place] positive, HER2 negative Previous treatment: 1. Lumpectomy and sentinel node biopsy in January 2019. Her tumor measured 1.0 cm. Seven lymph nodes were sampled all of which were negative for metastatic disease. 2. Adjuvant radiation finishing in May 2019 Interval history: Patient is a 73-year-old woman who returns today for follow-up. Since her last visit here, she started on anastrozole. She has been taking it for about 2 weeks. She has not had any hot flashes but has noted some stiffness and pain in her hands. She has had previous arthritis and really can't tell if it is worse. She has not had any GI complaints. No shortness of breath or cough. Strength and energy level have been good. She denies any other changes in her health. She is concerned about the risk for osteoporosis with the aromatase inhibitors. She was scheduled for Prolia but was worried about side effects of that particularly osteonecrosis of the jaw. She has decided that she would like to try tamoxifen instead. Her past medical history is notable for osteopenia and osteoporosis. She did have a prior D&C many years ago. She has otherwise been quite healthy. She currently is on no prescription medications but does take some calcium vitamin D and a bone supplement. - Patient Self-Reported Symptoms SR Constitution: Weight loss/gain Home Medications and Allergies Home Medications Medication Instructions Recorded Confirmed Type cholecalciferol (vitamin D3) 1,000 units PO DAILY #0 12/13/17 07/03/19 History Bone Essentials 1 tab PO DAILY 12/26/18 07/03/19 History Restasis 1 % EYE-BOTH BID 12/26/18 07/03/19 History vitamin B complex 1 tab PO DAILY 12/26/18 07/03/19 History azelaic acid 15 % topical gel 1 applictn TOP BID 01/14/19 07/03/19 History ciclopirox 8 % topical solution 1 applictn TOP BEDTIME 01/14/19 07/03/19 History tamoxifen 20 mg PO DAILY #90 tab 07/03/19 Rx Allergies Allergy/AdvReac Type Severity Reaction Status Date / Time alendronate sodium Allergy Mild Verified 02/27/19 11:53 terbinafine Allergy Mild Verified 02/27/19 11:53 Exam Vital signs: Vital Signs Temp Pulse Resp BP Pulse Ox 07/03/19 09:53 97.9 F 76 16 137/73 96 Intake and Output 07/02/19 07/03/19 07/03/19 23:59 07:59 15:59 Other: Weight 55.2 kg Patient Weight 07/03/19 23:59 Weight 55.2 kg - Constitutional positive no acute distress, positive average body habitus Comments: She is not further examined. Results - Imaging Additional studies: Procedures Closed [endoscopic] biopsy of large intestine (12/12/13) Assessment and Plan (1) Breast cancer Current visit: Yes Status: Acute 73-year-old woman with a new diagnosis of small ER positive breast cancer. Her tumor is 1.0 cm in size. Seven lymph nodes were negative. The difference in absolute benefits between an aromatase inhibitor and tamoxifen is quite small. She would like to switch to tamoxifen because of concerns about toxicity with aromatase inhibitor and denosumab. We did review side effects of tamoxifen including risk for thrombosis and abnormal uterine bleeding. She is willing to proceed and does understand those risks are quite small. I did give her prescription for 20 mg daily. She will return to clinic in about 3 months for follow-up. She will be due for a mammogram early next year. 25 minutes was spent with the patient the majority in counseling.
[2019-07-03 11:24] LABS: Vitamin D 25 Hydroxy (D3) 54.9 ng/mL (30.0-100.0)
[2019-10-09 11:30] VITALS: BP 136/64; PULSE 86; RESP 18; TEMP 36.4; O2SAT 99
--- NOTE | 2019-10-09 12:00 | ONC.PN ---
PN -Subjective Interval history: Right breast cancer, T1b N0 ER/[place] positive, HER2 negative Previous treatment: 1. Lumpectomy and sentinel node biopsy in January 2019. Her tumor measured 1.0 cm. Seven lymph nodes were sampled all of which were negative for metastatic disease. 2. Adjuvant radiation finishing in May 2019 3. Tamoxifen beginning in July 2019 Interval history: Patient is a 73-year-old woman who returns today for follow-up. Since her last visit here, she switched from anastrozole to tamoxifen. She has been taking it for about 3 months now. She has been tolerating it pretty well. She has had some occasional cramps in her legs at night. The seem to be better if she stays well hydrated. She has not had any hot flashes. She has not noticed any other changes or side effects. She denies any changes in the breast. No shortness of breath or cough. No GI complaints. She denies any other changes in her health. Her past medical history is notable for osteopenia and osteoporosis. She did have a prior D&C many years ago. She has otherwise been quite healthy. She currently is on no prescription medications but does take some calcium vitamin D and a bone supplement. - Patient Self-Reported Symptoms SR Constitution: Weight loss/gain SR Skin issues: Hair loss or scalp prob SR Gastrointestinal issues: Change in bowel pattern Home Medications and Allergies Home Medications Medication Instructions Recorded Confirmed Type cholecalciferol (vitamin D3) 1,000 units PO DAILY #0 12/13/17 10/09/19 History Bone Essentials 1 tab PO DAILY 12/26/18 10/09/19 History Restasis 1 % EYE-BOTH BID 12/26/18 10/09/19 History vitamin B complex 1 tab PO DAILY 12/26/18 10/09/19 History azelaic acid 15 % topical gel 1 applictn TOP BID 01/14/19 10/09/19 History ciclopirox 8 % topical solution 1 applictn TOP BEDTIME 01/14/19 10/09/19 History tamoxifen 20 mg PO DAILY #90 tab 07/03/19 10/09/19 Rx Allergies Allergy/AdvReac Type Severity Reaction Status Date / Time alendronate sodium Allergy Mild Verified 02/27/19 11:53 terbinafine Allergy Mild Verified 02/27/19 11:53 Exam Vital signs: Vital Signs Temp Pulse Resp BP Pulse Ox 10/09/19 11:30 97.5 F L 86 18 136/64 99 Intake and Output 10/08/19 10/09/19 10/09/19 23:59 07:59 15:59 Other: Weight 54.9 kg Patient Weight 10/09/19 23:59 Weight 54.9 kg - Constitutional positive no acute distress, positive average body habitus - Routine HEENT Exam Head: Present: normocephalic, atraumatic Eye: Present: EOMI, PERRL. Absent: conjunctival icterus, scleral injection ENT: Present: mucous membranes moist, oropharynx clear - Routine Neck Exam Present: supple. Absent: lymphadenopathy, thyromegaly - Routine Chest/Breast/Axilla Exam Comments: Breast exam shows a well-healed incision on the right breast. There is no nodularity or masses. No axillary adenopathy. No suspicious masses in the left breast. - Routine Respiratory Exam Present: Clear to auscultation bilaterally. Absent: rales, wheezes - Routine Cardiovascular Exam Present: RRR, S1, S2. Absent: murmur - Routine Abdominal Exam Present: soft, normoactive bowel sounds. Absent: tenderness, organomegaly, mass - Routine Extremities Exam Absent: cyanosis, clubbing, edema - Routine Back/Spine Exam Back/Spine: Absent: vertebral tenderness - Routine Skin Exam Present: intact. Absent: petechiae, rash - Routine Neurological Exam Present: alert, oriented X3 - Routine Psychiatric Exam Present: normal affect, normal thought process Results - Labs Laboratory Last Values 25-OH Vitamin D Total 54.9 ng/mL (30.0-100.0) 07/03/19 10:31 - Imaging Additional studies: Procedures Closed [endoscopic] biopsy of large intestine (12/12/13) Assessment and Plan (1) Breast cancer Current visit: Yes Status: Acute 73-year-old woman with a new diagnosis of small ER positive breast cancer. Her tumor is 1.0 cm in size. Seven lymph nodes were negative. She is tolerating tamoxifen well and will continue with her current regimen. She will return to clinic in about 3 months for follow-up. She will be due for a mammogram at that time.
== END ==
PROVIDERS: PCP Family Medicine
DX: C50.211 Malignant neoplasm of upper-inner quadrant of right female breast (principal); M81.0 Age-related osteoporosis without current pathological fracture; Z17.0 Estrogen receptor positive status [ER+]; Z79.810 Long term (current) use of selective estrogen receptor modulators (SERMs)
CPT/HCPCS: 36415; 82306; 99204; 99214; 99215

== ENCOUNTER → 2019-12-31 09:39 | Outpatient (CLI) | payer MEDICARE, OTHER, SELFPAY ==
--- NOTE | 2019-12-31 10:02 | DI.MG.S_ITS ---
Patient Name: ANIBAL AYALA date: 1945 Sex: F Attending Physician: MIN Indications: Date: 12/31/2019 10:09 At the request of: DAVINA COPELAND Procedure: MM diagnostic mammo BI BILATERAL DIGITAL DIAGNOSTIC MAMMOGRAM 3D/2D SHORT-TERM FOLLOW-UP POST LUMPECTOMY: 12/31/2019 CLINICAL: Breast Cancer. Comparison is made to exams dated: 01/31/2019 localization, 12/14/2018 mammogram, 12/10/2018 mammogram, and 12/03/2018 mammogram - [facility]. The tissue of both breasts is heterogeneously dense. This may lower the sensitivity of mammography. The right breast has post-operative findings. No significant masses, calcifications, or other findings are seen in either breast. IMPRESSION: NEGATIVE There is no mammographic evidence of malignancy. A 1 year screening mammogram is recommended. This exam was interpreted at Station ID: [id number]. NOTE: For mammograms, a report in lay terms will be sent to the patient. Approximately 15% of breast malignancies will not be visualized mammographically. In the management of a palpable breast mass, a negative mammogram must not discourage biopsy of a clinically suspicious lesion. Electronically Signed By: Wolf Echevarria M.D. aty/:12/31/2019 11:15:10 copy to: Giuliana Wu copy to: Khanh Turpin letter sent: Normal Exam ACR BI-RADS Category 1: Negative 3341F
== END ==
PROVIDERS: PCP Family Medicine; Referring Provider Family Medicine; Visit Provider Internal Medicine Hematology & Oncology
DX: R92.8 Other abnormal and inconclusive findings on diagnostic imaging of breast (principal); C50.919 Malignant neoplasm of unspecified site of unspecified female breast
CPT/HCPCS: 77066; G0279

== ENCOUNTER → 2020-04-29 14:08 | Outpatient (CLI) | payer MEDICARE, OTHER, SELFPAY | PROVIDERS: PCP Family Medicine; Referring Provider Family Medicine; Visit Provider Family Medicine | DX: M81.0 Age-related osteoporosis without current pathological fracture (principal); Z78.0 Asymptomatic menopausal state; Z85.3 Personal history of malignant neoplasm of breast | CPT/HCPCS: 77080 ==

== ENCOUNTER → 2020-08-20 07:41 | Outpatient (CLI) | payer MEDICARE, OTHER, SELFPAY ==
--- NOTE | 2020-08-20 | DI.US.S_ITS ---
PROCEDURE: US PELVIC COMPLETE INDICATIONS: HX BREAST CANCER, TAMOXIFEN X 1 YEAR TECHNIQUE: Real-time scanning was performed of the pelvic organs, with image documentation. Additional endovaginal scanning was necessary due to incomplete visualization of the adnexal and endometrial structures by transabdominal scanning. COMPARISON: [facility], , US PELVIS AND TRANSVAGINAL, 12/10/2004, 14:48. FINDINGS: Transabdominal scanning: Limited scanning through the kidneys shows no hydronephrosis. No pathologic free abdominal or pelvic fluid. Endovaginal scanning: Uterus: Uterus is normal in size at 7.0 x 3.6 x 5.2 cm. The endometrium measures 9.6 mm in combined thickness and appears irregular. A small amount of endometrial fluid is present. There is a 1.6 cm intramural fibroid in the left anterior uterine wall. Ovaries: Ovaries are not visualized. IMPRESSION: 1. Endometrium appears thickened and irregular with a small amount of endometrial fluid. The patient has history of breast cancer is on tamoxifen. If clinically indicated, endometrial sampling may be performed. 2. A your intramural fibroid in the left anterior uterine wall. 3. Nonvisualization of ovaries. Dictated by: Juan Butterfield M.D. on 08/20/2020 at 9:25 Approved by: Juan Butterfield M.D. on 08/20/2020 at 9:30
== END ==
PROVIDERS: PCP Internal Medicine; Referring Provider Internal Medicine; Visit Provider Internal Medicine
DX: C50.911 Malignant neoplasm of unspecified site of right female breast (principal); D25.1 Intramural leiomyoma of uterus; Z79.810 Long term (current) use of selective estrogen receptor modulators (SERMs)
CPT/HCPCS: 76830; 76856

== ENCOUNTER → 2021-01-13 10:57 | Outpatient (CLI) | payer MEDICARE, OTHER, SELFPAY ==
--- NOTE | 2021-01-13 11:02 | DI.MG.S_ITS ---
BILATERAL DIGITAL SCREENING MAMMOGRAM 3D/2D WITH CAD: 01/13/2021 CLINICAL: Routine screening. Breast cancer. Comparison is made to exams dated: 12/31/2019 mammogram, 01/31/2019 mammogram, 12/14/2018 mammogram, 12/10/2018 mammogram, and 12/03/2018 mammogram - [facility]. The tissue of both breasts is heterogeneously dense. This may lower the sensitivity of mammography. Current study was also evaluated with a Computer Aided Detection (CAD) system. There are benign post operative findings in the right breast. No significant masses, calcifications, or other findings are seen in either breast. There has been no significant interval change. IMPRESSION: BENIGN There is no mammographic evidence of malignancy. A 1 year screening mammogram is recommended. This exam was interpreted at Station ID: [id number]. NOTE: For mammograms, a report in lay terms will be sent to the patient. Approximately 15% of breast malignancies will not be visualized mammographically. In the management of a palpable breast mass, a negative mammogram must not discourage biopsy of a clinically suspicious lesion. Electronically Signed By: Wolf jackman/leatha:01/13/2021 14:34:20 copy to: Giuliana Wu letter sent: Normal Exam ACR BI-RADS Category 2: Benign Finding(s) 3342F
== END ==
PROVIDERS: PCP Internal Medicine; Referring Provider Family Medicine; Visit Provider Family Medicine
DX: Z12.31 Encounter for screening mammogram for malignant neoplasm of breast (principal)
CPT/HCPCS: 77063; 77067

== ENCOUNTER → 2021-05-06 09:46 | Outpatient (CLI) | payer MEDICARE, OTHER, SELFPAY | PROVIDERS: PCP Internal Medicine; Referring Provider Family Medicine; Visit Provider Family Medicine | DX: M81.0 Age-related osteoporosis without current pathological fracture (principal); Z78.0 Asymptomatic menopausal state; Z85.3 Personal history of malignant neoplasm of breast | CPT/HCPCS: 77080 ==

== ENCOUNTER → 2021-07-21 10:09 | Outpatient (CLI) | payer MEDICARE, OTHER, SELFPAY ==
[2021-07-21 11:40] LABS: COVID19 -Nasal RAPID Negative (Negative)
== END ==
PROVIDERS: PCP Internal Medicine; Visit Provider Physician Assistant
DX: Z20.822 Contact with and (suspected) exposure to COVID-19 (principal); J02.9 Acute pharyngitis, unspecified; R51.9 Headache, unspecified; R52 Pain, unspecified; R53.83 Other fatigue
CPT/HCPCS: 87635

== ENCOUNTER → 2022-01-19 10:46 | Outpatient (CLI) | payer MEDICARE, OTHER, SELFPAY ==
--- NOTE | 2022-01-19 | DI.MG.S_ITS ---
BILATERAL DIGITAL SCREENING MAMMOGRAM 3D/2D WITH CAD: 01/19/2022 CLINICAL: Routine screening. Breast cancer. Comparison is made to exams dated: 01/13/2021 mammogram, 12/31/2019 mammogram, 01/31/2019 mammogram, 12/14/2018 mammogram, 12/10/2018 mammogram, and 12/03/2018 mammogram - [facility]. The tissue of both breasts is heterogeneously dense. This may lower the sensitivity of mammography. Current study was also evaluated with a Computer Aided Detection (CAD) system. There is a possible developing irregular asymmetry in the left breast posterior depth lateral region seen on the craniocaudal view only. This is more prominent. No other significant masses, calcifications, or other findings are seen in either breast. IMPRESSION: INCOMPLETE: NEEDS ADDITIONAL IMAGING EVALUATION The possible developing irregular asymmetry in the left breast is indeterminate. Additional views with possible ultrasound are recommended. This exam was interpreted at Station ID: [id number]. NOTE: For mammograms, a report in lay terms will be sent to the patient. Approximately 15% of breast malignancies will not be visualized mammographically. In the management of a palpable breast mass, a negative mammogram must not discourage biopsy of a clinically suspicious lesion. Electronically Signed By: Annamaria lyn/leatha:01/19/2022 11:56:29 copy to: DAVINA COPELAND letter sent: Additional Imaging Needed ACR BI-RADS Category 0: Incomplete [id number]
== END ==
PROVIDERS: PCP Family Medicine; Referring Provider Internal Medicine; Visit Provider Internal Medicine
DX: Z12.31 Encounter for screening mammogram for malignant neoplasm of breast (principal); Z85.3 Personal history of malignant neoplasm of breast
CPT/HCPCS: 77063; 77067

== ENCOUNTER 2022-06-02 10:34 | Emergency (ER) | payer MEDICARE, OTHER, SELFPAY ==
[2022-06-02] VITALS (13 sets, daily range): BP systolic 121–139; BP diastolic 56–92; PULSE 57–74; RESP 12–23; TEMP 36.1; O2SAT 98–100; BMI 21.9
--- NOTE | 2022-06-02 10:42 | DI.RAD.S_ITS ---
PROCEDURE: XR CHEST 1V INDICATIONS: chest pain TECHNIQUE: One view of the chest was acquired. COMPARISON: None. FINDINGS: Surgical changes and devices: Surgical clips in the right breast.. Lungs and pleura: Lungs are clear. No pleural effusions or pneumothorax. Mediastinum: Mediastinal contours appear normal. Heart size is normal. Bones and chest wall: No suspicious bony lesions. Overlying soft tissues appear unremarkable. IMPRESSION: No acute cardiopulmonary disease process. Dictated by: Martha Valdes MD, PhD on 06/02/2022 at 12:24 Approved by: Martha Valdes MD, PhD on 06/02/2022 at 12:25
[2022-06-02 11:59] LABS: Prothrombin Time 10.8 SECONDS (10.1-12.7)
[2022-06-02 12:01] LABS: PTT Partial Thromboplastin Tim 30 SECONDS (26.4-36.2)
[2022-06-02 12:03] LABS: Add Manual Diff / Slide Review NO; Basophils Absolute Auto 0 /uL (0-100); Basophils Percent Auto 0.6 % (0-2); Eosinophils Absolute Auto 0 /uL (0-450); Eosinophils Percent Auto 0.5 % (2-4); Hematocrit 40.5 % (36-46); Hemoglobin 13.4 g/dL (12.0-16.0); Lymphocytes Absolute Auto 1000 /uL (1100-4500); Lymphocytes Percent Auto 19.3 % (25-40); Mean Corpuscular HGB Conc 33.1 % (30-36); Mean Corpuscular Hemoglobin 32.7 PG (26-34); Mean Corpuscular Volume 98.8 fL (80-100); Monocytes Absolute Auto 300 /uL (0-900); Monocytes Percent Auto 6.4 % (3-14); Neutrophils Absolute Auto 3600 /uL (1500-7000); Neutrophils Percent Auto 73.2 % (50-75); Platelet Count 198 X10^3/uL (150-400); White Blood Cell Count 4.9 X10^3/uL (4.5-11.0)
[2022-06-02 12:04] LABS: Alanine Aminotransferase 25 IU/L (<35); Albumin 3.9 g/dL (3.5-5.0); Albumin Globulin Ratio 1.4 (1.0-2.8); Alkaline Phosphatase 50 U/L (38-126); Aspartate Aminotransferase 40 IU/L (14-36); BUN Creatinine Ratio 17.8 (6-22); Bilirubin Total 0.3 mg/dL (0.2-1.3); Blood Urea Nitrogen 16 mg/dL (7-17); Calcium 8.7 mg/dL (8.4-10.2); Carbon Dioxide 32 mmol/L (22-32); Chloride 103 mmol/L (98-107); Creatine Kinase 128 U/L (30-135); Estimated Glomerular Filt Rate > 60 mL/min (>60); Globulin 2.8 g/dL (1.7-4.1); Glucose 105 mg/dL (80-110); HEMOLYSIS < 15 (0-50); Lipase 163 U/L (23-300); Magnesium 2.1 mg/dL (1.6-2.3); Potassium 4.2 mmol/L (3.4-5.1); Sodium 136 mmol/L (137-145); Total Protein 6.7 g/dL (6.3-8.2)
[2022-06-02 12:15] LABS: Troponin I < 0.012 ng/mL (0.01-0.034)
[2022-06-02 12:19] LABS: CKMB % Relative Index 1.5 % (1.5-5.0)
--- NOTE | 2022-06-02 13:03 | ED.CHESTPAIN ---
HPI - Chest Pain General Chief Complaint: Chest Pain Stated Complaint: Chest pain- ref by certified medical transcriptionist Time Seen by Provider: 06/02/22 12:56 Source: patient Mode of arrival: Ambulatory Limitations: no limitations History of Present Illness HPI narrative: This is a 76-year-old female with history of breast cancer in 2019 still on tamoxifen with no other prescription medications. Patient was working out today at the [facility] in a workout class, she states she was using a fitness ball and may have had her chest on this witnessed fall but was using it in different ways to do pushups and developed discomfort substernally without any radiation while doing pushups. Patient stopped symptoms resolved in 10 minutes there was no radiation. She states she went to get some water. She denies any shortness of breath, no diaphoresis, no nausea or vomiting, no syncope. Patient has a very hard time describing the discomfort but states it was pain and not pressure, no burning sensation. She did have a lumpectomy just adjacent to that area that is slightly tender on palpation. She states this was at the end of the class. She works out 4-5 times weekly typically. She states they are always performing new movements so this isn't something that she normally does but she does typically work out vigorously. She is had a lumpectomy in the past. She was treated for breast cancer in 2019. No tobacco, alcohol or illicit. Dr. Bell is for PCP. Patient states her maternal grandfather had a pacemaker but no other known cardiac, embolic or pulmonary history reported. Related Data Home Medications Medication Instructions Recorded Confirmed cholecalciferol (vitamin D3) 125 1,000 units PO DAILY ##0 12/13/17 09/30/20 mcg (5,000 unit) capsule calcium 166.75 mg-vit D3 166.75 1 tab PO DAILY 12/26/18 09/30/20 unit-vit C-vit K2-minerals capsule (Bone Essentials) cyclosporine 0.05 % eye drops in a 1 % EYE-BOTH BID 12/26/18 09/30/20 dropperette (Restasis) vitamin B complex 1 tab PO DAILY 12/26/18 09/30/20 azelaic acid 15 % topical gel 1 applictn topical BID 01/14/19 09/30/20 (Finacea) ciclopirox 8 % topical solution 1 applictn topical BEDTIME 01/14/19 09/30/20 Previous Rx's Medication Instructions Recorded tamoxifen 20 mg tablet 20 mg PO DAILY #90 tabs 03/26/20 Allergies Allergy/AdvReac Type Severity Reaction Status Date / Time alendronate sodium Allergy Mild Verified 06/02/22 10:39 terbinafine Allergy Mild Verified 06/02/22 10:39 Review of Systems Review of Systems ROS Unobtainable: All systems reviewed & are unremarkable except as noted in HPI and below Patient History Medical History Invasive ductal carcinoma of right breast Osteoporosis Peripheral neuropathy Surgical History H/O blepharoplasty (12/13/17) H/O dilation and curettage Hx of right breast biopsy S/P lumpectomy, right breast (01/31/19) Family History Father Cancer Grandfather Heart disease Social History marital status: household members: spouse occupational status: previously employed Smoking Status: Never smoker alcohol intake: current substance use type: does not use Smoking Status: Never smoker alcohol intake frequency: holidays/special occasions only Substance Use Type: does not use Exam Narrative Exam Narrative: GENERAL: Alert and oriented x three, mild distress. HEENT: Head normocephalic, atraumatic, EOMI, pupils reactive, face symmetric, moist mucous membranes NECK: Supple, full range of motion CARDIOVASCULAR: Regular rate and rhythm without murmurs, rubs or gallops. Patient has very mild tenderness over healed scar at the right inner breast at 8:00 a.m. position. No mass, fullness or skin changes. Patient's has no significant chest tenderness. RESPIRATORY: Breath sounds equal bilaterally, no wheezes rales or rhonchi. ABDOMEN: Soft, nontender. Normoactive bowel sounds all 4 quadrants. No guarding or rebound, rigidity, no mass : No CVA tenderness EXTREMITIES: Normal range of motion, no clubbing or edema. Neurovascularly intact NEUROLOGICAL: Cranial nerves II through XII grossly intact. Moving all extremities SKIN: Warm, dry, no petechiae, no rashes or lesions. Initial Vital Signs Initial Vital Signs: Vital Signs Temperature 97.0 F L 06/02/22 10:39 Pulse Rate 74 06/02/22 10:39 Respiratory Rate 14 06/02/22 10:39 Blood Pressure 139/92 H 06/02/22 10:39 Pulse Oximetry 100 06/02/22 10:39 Oxygen Delivery Method 06/02/22 10:39 Scores HEART Score Heart Score history: Slightly Suspicious Heart Score EKG: Normal Heart Score Age: > or = 65 years old Heart Score risk factors: No known risk factors Heart Score troponin: < or = to normal limit Heart Score Total: 2 Course Orders Ordered: ED Orders 06/02/22 13:37 Trop I [Troponin I] Stat Vital Signs Vital signs: Vital Signs - 8 hr 06/02/22 14:09 06/02/22 14:10 06/02/22 14:10 Pulse Rate 63 59 L Blood Pressure 136/60 Pulse Oximetry 99 99 06/02/22 14:30 06/02/22 14:31 06/02/22 14:31 Pulse Rate 58 L 65 Blood Pressure 121/56 L Pulse Oximetry 100 100 06/02/22 15:00 06/02/22 15:00 06/02/22 15:30 Pulse Rate 68 64 Blood Pressure 139/64 Pulse Oximetry 100 99 MDM - Chest Pain Lab Data Result diagrams: 06/02/22 10:45 06/02/22 10:45 Labs: Lab Results 06/02/22 06/02/22 06/02/22 Range/Units 10:45 10:45 10:45 WBC 4.9 (4.5-11.0) X10^3/uL RBC 4.10 (4.0-5.2) X10^6/uL Hgb 13.4 (12.0-16.0) g/dL Hct 40.5 (36-46) % MCV 98.8 (80-100) fL MCH 32.7 (26-34) PG MCHC 33.1 (30-36) % RDW 13.0 (11.6-14.8) % Plt Count 198 (150-400) X10^3/uL Neut % (Auto) 73.2 (50-75) % Lymph % (Auto) 19.3 L (25-40) % [place] % (Auto) 6.4 (3-14) % Eos % (Auto) 0.5 L (2-4) % Baso % (Auto) 0.6 (0-2) % Neut # (Auto) 3600 (2148-7336) /uL Lymph # (Auto) 1000 L (0434-5381) /uL [place] # (Auto) 300 (0-900) /uL Eos # (Auto) 0 (0-450) /uL Baso # (Auto) 0 (0-100) /uL PT 10.8 (10.1-12.7) SECONDS INR 1.0 (0.9-1.3) APTT 30 (26.4-36.2) SECONDS Sodium 136 L (137-145) mmol/L Potassium 4.2 (3.4-5.1) mmol/L Chloride 103 (98-107) mmol/L Carbon Dioxide 32 (22-32) mmol/L BUN 16 (7-17) mg/dL Creatinine 0.90 (0.52-1.04) mg/dL Estimated GFR > 60 (>60) mL/min BUN/Creatinine Ratio 17.8 (6-22) Glucose 105 (80-110) mg/dL Calcium 8.7 (8.4-10.2) mg/dL Magnesium 2.1 (1.6-2.3) mg/dL Total Bilirubin 0.3 (0.2-1.3) mg/dL AST 40 H (14-36) IU/L ALT 25 (<35) IU/L Alkaline Phosphatase 50 (38-126) U/L Total Creatine Kinase 128 (30-135) U/L CK-MB (CK-2) 1.90 (<2.37) ng/mL CK-MB (CK-2) Rel Index 1.5 (1.5-5.0) % Troponin I < 0.012 (0.01-0.034) ng/mL Total Protein 6.7 (6.3-8.2) g/dL Albumin 3.9 (3.5-5.0) g/dL Globulin 2.8 (1.7-4.1) g/dL Albumin/Globulin Ratio 1.4 (1.0-2.8) Lipase 163 (23-300) U/L 06/02/22 Range/Units 13:37 WBC (4.5-11.0) X10^3/uL RBC (4.0-5.2) X10^6/uL Hgb (12.0-16.0) g/dL Hct (36-46) % MCV (80-100) fL MCH (26-34) PG MCHC (30-36) % RDW (11.6-14.8) % Plt Count (150-400) X10^3/uL Neut % (Auto) (50-75) % Lymph % (Auto) (25-40) % [place] % (Auto) (3-14) % Eos % (Auto) (2-4) % Baso % (Auto) (0-2) % Neut # (Auto) (8670-9780) /uL Lymph # (Auto) (8828-7583) /uL [place] # (Auto) (0-900) /uL Eos # (Auto) (0-450) /uL Baso # (Auto) (0-100) /uL PT (10.1-12.7) SECONDS INR (0.9-1.3) APTT (26.4-36.2) SECONDS Sodium (137-145) mmol/L Potassium (3.4-5.1) mmol/L Chloride (98-107) mmol/L Carbon Dioxide (22-32) mmol/L BUN (7-17) mg/dL Creatinine (0.52-1.04) mg/dL Estimated GFR (>60) mL/min BUN/Creatinine Ratio (6-22) Glucose (80-110) mg/dL Calcium (8.4-10.2) mg/dL Magnesium (1.6-2.3) mg/dL Total Bilirubin (0.2-1.3) mg/dL AST (14-36) IU/L ALT (<35) IU/L Alkaline Phosphatase (38-126) U/L Total Creatine Kinase (30-135) U/L CK-MB (CK-2) (<2.37) ng/mL CK-MB (CK-2) Rel Index (1.5-5.0) % Troponin I < 0.012 (0.01-0.034) ng/mL Total Protein (6.3-8.2) g/dL Albumin (3.5-5.0) g/dL Globulin (1.7-4.1) g/dL Albumin/Globulin Ratio (1.0-2.8) Lipase (23-300) U/L Imaging Data Chest x-ray: Radiologist's Impression: [address] [id number] ReportSigned Patient: Sara Murphy SMR#: [id number]: 8Acct:[id number]/Sex: 76 / FDate of Service: 06/02/22Loc: EDAccession Number: [id number]? ? Procedure: XR chest 1V Ordering Provider: Pina Payne D.O. PROCEDURE:? XR CHEST 1V ? INDICATIONS:? chest pain ? TECHNIQUE:? One view of the chest was acquired.? ? COMPARISON:? None. ? FINDINGS:? ? Surgical changes and devices:? Surgical clips in the right breast..? ? Lungs and pleura:? Lungs are clear.? No pleural effusions or pneumothorax.? ? Mediastinum:? Mediastinal contours appear normal.? Heart size is normal.? ? Bones and chest wall:? No suspicious bony lesions.? Overlying soft tissues appear unremarkable.? ? IMPRESSION:? No acute cardiopulmonary disease process. ? ? Dictated by: Martha Valdes MD, PhD on 06/02/2022 at 12:24? ?? Approved by: Martha Valdes MD, PhD on 06/02/2022 at 12:25?? ECG Data Attestation: I personally reviewed and interpreted this ECG as follows: Interpretation: Patient is inverted T-waves V1, V2 with no ST elevation. Appears have a Q-wave in 1 to no other acute ST changes noted. No priors available EKG 2. Shows sinus rhythm with sinus arrhythmia rate of 60 VA interval 124 QRS 86 and QTC of 424. No acute ST elevation or depression noted. MDM Narrative Medical decision making narrative: This is a 76-year-old female with complaint of chest pain that occurred after and while doing pushups and an exercise class. She states at some point she was using an exercise ball and may have been directly on her chest but she is unsure if it was while she was performing the actual pushups at that point. Patient does not have significant risk factors outside age, she is a history of breast cancer she is on tamoxifen but has very abrupt short symptoms so very unlikely to be a pulmonary emboli, patient's symptoms resolved once she stopped performing any pushups did not have any other symptoms making ACS less likely with no acute EKG changes, negative troponin x2 and no current symptoms. Patient and I discussed her labs are reassuring, CBC, CMP, COVID is negative and chest x-ray shows no acute change. Discussed if recurrent symptoms with movement of the chest or extremities would suggest more of a musculoskeletal cause which is my suspicion. If she has other chest pain that does not seem to be clearly related to movement she does need repeat evaluation and if persisting or suddenly worse needs to return to the ER for recheck. Patient and family expressed their understanding. Discharge Plan Departure Patient Disposition: Home Clinical Impression: Chest pain Instructions: DI for Chest Pain Activity Restrictions/Additional Instructions: I suspect your symptoms today are related to more musculoskeletal cause. If you notice that they are worse with movement of your chest or extremities this is likely musculoskeletal and may take a dose of ibuprofen or Tylenol as needed. If you appreciate chest pain with exertion or at rest that does not seem likely to be musculoskeletal or is different in nature please follow-up or return for recheck and possibly future stress testing. Please return for worsening chest pain new shortness of breath, passing out, dizziness, diaphoresis or sweatiness, new nausea or vomiting, new swelling of extremities or other new or concerning symptoms. Prescriptions: No Action cholecalciferol (vitamin D3) 5,000 UNIT capsule 1,000 units PO DAILY Qty: 0 azelaic acid [Finacea] 15 % gel 1 applictn TOP BID ciclopirox 8 % solution 1 applictn TOP BEDTIME Bone Essentials 166.75 mg- 166.75 unit Capsule 1 tab PO DAILY Restasis 0.05 % Dropperette 1 % EYE-BOTH BID vitamin B complex Tablet 1 tab PO DAILY tamoxifen 20 mg Tablet 20 mg PO DAILY Qty: 90 3RF Referrals: Cesar Bell MD [Primary Care Provider] - Visit Report Forms: Patient Portal/API
[2022-06-02 14:06] LABS: Troponin I < 0.012 ng/mL (0.01-0.034)
== END 2022-06-02 15:56 | disposition home or self-care (01) ==
PROVIDERS: Emergency Provider Emergency Medicine; PCP Family Medicine
DX: R07.9 Chest pain, unspecified (principal)
CPT/HCPCS: 36415; 71045; 80053; 82550; 82553; 83690; 83735; 84484; 85025; 85610; 85730; 93005; 99284

== ENCOUNTER → 2023-05-10 10:12 | Outpatient (CLI) | payer MEDICARE, OTHER, SELFPAY ==
--- NOTE | 2023-05-10 10:37 | DI.DEXA.S_ITS ---
Bone Density Report Name: ANIBAL AYALA Age: 77 Sex: Female Ethnicity: White Date of : 1945 Indication: postmenopausal osteoporosis; monitoring treatment; Referring Provider: SANDRA ARROYO Study: Bone densitometry was performed. Exam Date: May 10, 2023 Accession number: [id number] Bone Density: Region BMD T-score Z-score Classification AP Spine(L1-L4) 1.026 -0.2 2.2 Normal Femoral Neck (Left) 0.525 -2.9 -0.8 Osteoporosis Total Hip (Left) 0.680 -2.1 -0.3 Osteopenia Femoral Neck (Right) 0.558 -2.6 -0.5 Osteoporosis Total Hip (Right) 0.655 -2.4 -0.5 Osteopenia Total Hip Mean 0.667 -2.3 -0.4 Osteopenia World Health Organization criteria for BMD impression classify patients as: Normal (T-score at or above -1.0), Osteopenia (T-score between -1.0 and -2.5), or Osteoporosis (T-score at or below -2.5). 10-year Fracture Risk: FRAX not reported because: Some T-score for Spine Total or Hip Total or Femoral Neck at or below -2.5 Treated for osteoporosis Previous Exams: -- Region Exam Age BMD T-score BMD Change BMD Change Date g/cm2 vs Baseline vs Previous -- AP Spine (L1-L4) 05/10/2023 77 1.026 -0.2 -0.022 (-2.1%)# -0.022 (-2.1%)# 05/06/2021 75 1.049 0.0 Total Hip(Left) 05/10/2023 77 0.680 -2.1 0.043 (6.7%)# 0.043 (6.7%)# 05/06/2021 75 0.637 -2.5 Total Hip(Right) 05/10/2023 77 0.655 -2.4 -0.004 (-0.7%)# -0.004 (-0.7%)# 05/06/2021 75 0.659 -2.3 -- *Denotes significance at 95% confidence level, LSC for AP Spine = 0.022 g/cm2, LSC for Total Hip = 0.027 g/cm2 # Denotes dissimilar scan types or analysis methods Impression: The patient has osteoporosis, based on the Left Femoral Neck T-score. No significant bone loss was observed. Discussion: PATIENT UNDER TREATMENT WITH NO SIGNIFICANT BMD LOSS SINCE LAST EXAM. In an untreated patient, BMD typically declines with age. A lack of decline or gain is usually a sign that treatment is efficacious and fracture risk is reduced. It is important to ask patients whether they are taking their medications and to encourage continued and appropriate compliance with their osteoporosis therapies to reduce fracture risk. It is also important to review their risk factors and encourage appropriate calcium and vitamin D intakes, exercise, fall prevention and other lifestyle measures. Follow-Up: Consider a repeat BMD and Vertebral Fracture Assessment (VFA) exam in 2 years or sooner if medically necessary, to reassess this patient's status. Reported by: CASSIDY ZUNIGA M.D. on 05/10/2023 10:47:00 AM.
== END ==
PROVIDERS: PCP Family Medicine; Referring Provider Family Medicine; Visit Provider Family Medicine
DX: M81.0 Age-related osteoporosis without current pathological fracture (principal); Z13.820 Encounter for screening for osteoporosis; Z78.0 Asymptomatic menopausal state; Z79.83 Long term (current) use of bisphosphonates; Z92.23 Personal history of estrogen therapy
CPT/HCPCS: 77080

== ENCOUNTER → 2023-06-29 09:51 | Outpatient (CLI) | payer MEDICARE, OTHER, SELFPAY ==
[2023-06-29 10:20] LABS: Add Manual Diff / Slide Review NO; Basophils Absolute Auto 0 /uL (0-100); Basophils Percent Auto 0.4 % (0-2); Eosinophils Absolute Auto 100 /uL (0-450); Eosinophils Percent Auto 0.8 % (2-4); Hematocrit 40.3 % (36-46); Hemoglobin 13.7 g/dL (12.0-16.0); Lymphocytes Absolute Auto 1100 /uL (1100-4500); Lymphocytes Percent Auto 17.7 % (25-40); Mean Corpuscular HGB Conc 34.1 % (30-36); Mean Corpuscular Hemoglobin 33.5 PG (26-34); Mean Corpuscular Volume 98.2 fL (80-100); Monocytes Absolute Auto 400 /uL (0-900); Neutrophils Absolute Auto 4700 /uL (1500-7000); Neutrophils Percent Auto 75.1 % (50-75); Platelet Count 220 X10^3/uL (150-400); Red Cell Distribution Width 13.9 % (11.6-14.8); White Blood Cell Count 6.3 X10^3/uL (4.5-11.0)
[2023-06-29 10:45] LABS: Alanine Aminotransferase 25 IU/L (<35); Albumin 3.9 g/dL (3.5-5.0); Albumin Globulin Ratio 1.3 (1.0-2.8); Alkaline Phosphatase 42 U/L (38-126); Aspartate Aminotransferase 36 IU/L (14-36); BUN Creatinine Ratio 18.1 (6-22); Bilirubin Total 0.4 mg/dL (0.2-1.3); Blood Urea Nitrogen 17 mg/dL (7-17); Calcium 8.9 mg/dL (8.4-10.2); Carbon Dioxide 32 mmol/L (22-32); Chloride 99 mmol/L (98-107); Estimated Glomerular Filt Rate > 60 mL/min (>60); Glucose 90 mg/dL (80-110); HEMOLYSIS < 15 (0-50); Potassium 4.2 mmol/L (3.4-5.1); Sodium 138 mmol/L (137-145); Total Protein 6.9 g/dL (6.3-8.2)
== END ==
PROVIDERS: PCP Family Medicine; Referring Provider Physician Assistant; Visit Provider Physician Assistant
DX: B35.1 Tinea unguium (principal)
CPT/HCPCS: 36415; 80053; 85025

== ENCOUNTER → 2023-08-14 09:29 | Outpatient (CLI) | payer MEDICARE, OTHER, SELFPAY ==
[2023-08-14 11:03] LABS: Add Manual Diff / Slide Review NO; Basophils Absolute Auto 0 /uL (0-100); Basophils Percent Auto 0.4 % (0-2); Eosinophils Absolute Auto 0 /uL (0-450); Eosinophils Percent Auto 0.5 % (2-4); Hemoglobin 13.5 g/dL (12.0-16.0); Lymphocytes Absolute Auto 1400 /uL (1100-4500); Lymphocytes Percent Auto 21.8 % (25-40); Mean Corpuscular HGB Conc 33.7 % (30-36); Mean Corpuscular Hemoglobin 33.3 PG (26-34); Mean Corpuscular Volume 98.9 fL (80-100); Monocytes Absolute Auto 300 /uL (0-900); Monocytes Percent Auto 4.9 % (3-14); Neutrophils Absolute Auto 4500 /uL (1500-7000); Neutrophils Percent Auto 72.4 % (50-75); Platelet Count 219 X10^3/uL (150-400); Red Blood Cell Count 4.04 X10^6/uL (4.0-5.2); Red Cell Distribution Width 13.6 % (11.6-14.8); White Blood Cell Count 6.3 X10^3/uL (4.5-11.0)
[2023-08-14 11:27] LABS: Alanine Aminotransferase 27 IU/L (<35); Albumin 3.8 g/dL (3.5-5.0); Albumin Globulin Ratio 1.3 (1.0-2.8); Alkaline Phosphatase 39 U/L (38-126); Aspartate Aminotransferase 38 IU/L (14-36); BUN Creatinine Ratio 21.3 (6-22); Bilirubin Total 0.4 mg/dL (0.2-1.3); Blood Urea Nitrogen 19 mg/dL (7-17); Calcium 9.1 mg/dL (8.4-10.2); Carbon Dioxide 30 mmol/L (22-32); Chloride 101 mmol/L (98-107); Estimated Glomerular Filt Rate > 60 mL/min (>60); Glucose 110 mg/dL (80-110); HEMOLYSIS < 15 (0-50); Potassium 4.2 mmol/L (3.4-5.1); Sodium 138 mmol/L (137-145); Total Protein 6.8 g/dL (6.3-8.2)
== END ==
PROVIDERS: PCP Family Medicine; Referring Provider Physician Assistant; Visit Provider Physician Assistant
DX: B35.1 Tinea unguium (principal)
CPT/HCPCS: 36415; 80053; 85025

== ENCOUNTER 2023-12-27 09:34 | Day surgery (SDC) | payer OTHER, SELFPAY ==
[2023-12-27] MEDS: LACTATED RINGERS 1,000 ML 42 ML IV (09:46)
[2023-12-27 09:55] VITALS: BP 136/80; PULSE 95; RESP 20; TEMP 36.4; O2SAT 100
--- NOTE | 2023-12-27 10:26 | PM.HP.1 ---
History of Present Illness History of Present Illness Date Patient Seen: 12/27/23 Time Patient Seen: 10:26 Chief complaint: Colonoscopy Narrative: Fab is a 78-year-old woman who presents for colonoscopy. Her last was about 10 years ago and was normal. [facility] Medical History Invasive ductal carcinoma of right breast Osteoporosis Peripheral neuropathy Surgical History H/O blepharoplasty (12/13/17) H/O dilation and curettage Hx of right breast biopsy S/P lumpectomy, right breast (01/31/19) Family History Father Cancer Grandfather Heart disease Social History marital status: household members: spouse occupational status: previously employed Smoking Status: Never smoker alcohol intake: current substance use type: does not use Meds Home Medications and Allergies Home Medications Medication Instructions Recorded Confirmed Type cholecalciferol (vitamin D3) 125 1,000 units PO DAILY ##0 12/13/17 09/30/20 History mcg (5,000 unit) capsule calcium 166.75 mg-vit D3 166.75 1 tab PO DAILY 12/26/18 09/30/20 History unit-vit C-vit K2-minerals capsule (Bone Essentials) cyclosporine 0.05 % eye drops in a 1 % EYE-BOTH BID 12/26/18 09/30/20 History dropperette (Restasis) vitamin B complex 1 tab PO DAILY 12/26/18 09/30/20 History azelaic acid 15 % topical gel 1 applictn topical BID 01/14/19 09/30/20 History (Finacea) ciclopirox 8 % topical solution 1 applictn topical BEDTIME 01/14/19 09/30/20 History tamoxifen 20 mg tablet 20 mg PO DAILY #90 tabs 03/26/20 12/27/23 Rx sodium,potassium,mag sulfates 17.5 See Rx Instructions PO .COMPLEX 11/21/23 Rx gram-3.13 gram-1.6 gram oral soln #354 mL (Suprep Bowel Prep Kit) Allergies Allergy/AdvReac Type Severity Reaction Status Date / Time alendronate sodium Allergy Mild Verified 12/27/23 09:53 terbinafine Allergy Mild Verified 12/27/23 09:53 Exam Vital Signs (past 8 hours): - 12/27/23 09:55 Temperature 97.6 F Pulse Rate 95 H Respiratory Rate 20 Blood Pressure 136/80 Pulse Oximetry 100 Oxygen Delivery Method Room Air Oxygen Delivery Method Room Air Const General: healthy appearing Resp Effort & Inspection: normal respiratory effort Assessment & Plan Assessment and plan (1) Colon cancer screening: Status: Acute Plan We reviewed the risks and benefits of colonoscopy for colon cancer screening and she would like to proceed.
--- NOTE | 2023-12-27 10:57 | PM.OP.COLON ---
Operative Date/Time/Diagnoses Date of procedure: 12/27/23 Time of procedure: 10:58 Pre-op diagnosis: Colon cancer screening Post-op diagnosis: same Procedure & Clinicians Study performed: Colonoscopy Same procedure as scheduled: Yes Surgeon: Pablo Ibarra Procedure Notes Procedure in detail: Surgeon: Pablo Ibarra MD Anesthesia: Digna White CRNA Procedure: The patient was brought to the endoscopy suite, placed in left lateral decubitus position. The patient was connected to monitoring devices. A time-out was performed. Sedation was administered. Once the patient was adequately sedated, a digital rectal exam was performed and was normal. The scope was then inserted and advanced to the cecum where the appendiceal orifice was identified and photographed. The scope was then slowly withdrawn over greater than 6 minutes. The mucosa was thoroughly inspected. No abnormalities were found. The scope was retroflexed in the rectum. No abnormalities were seen. The scope was straightened and removed. The patient was awakened and brought to recovery. Scope withdrawal time: 10 minutes Sedation time: 13 minutes EBL: 0 Findings: Normal colon Post-procedure Disposition: PACU
[2023-12-27 11:00] VITALS: BP 97/58; PULSE 80; RESP 9; TEMP 36.7; O2SAT 98
[2023-12-27 11:05] VITALS: BP 98/61; PULSE 77; RESP 18; O2SAT 99
[2023-12-27 11:09] VITALS: BP 116/63; PULSE 72; RESP 16; TEMP 36.4; O2SAT 99
[2023-12-27 11:10] VITALS: BP 110/67; PULSE 72; RESP 17; O2SAT 99
== END 2023-12-27 11:25 | disposition home or self-care (01) ==
PROVIDERS: PCP Family Medicine; Referring Provider Surgery; Visit Provider Surgery
PROC: 0DJD8ZZ Inspection of Lower Intestinal Tract, Via Natural or Artificial Opening Endoscopic (ICD-10-PCS; CPT 45378; principal; 2023-12-27 10:30)
DX: Z12.11 Encounter for screening for malignant neoplasm of colon (principal)
CPT/HCPCS: G0121; 45378; J2704

== ENCOUNTER → 2024-02-05 12:48 | Outpatient (CLI) | payer OTHER, SELFPAY ==
--- NOTE | 2024-02-05 12:49 | DI.MG.S_ITS ---
BILATERAL DIGITAL SCREENING MAMMOGRAM 3D/2D WITH CAD POST LUMPECTOMY: 02/05/2024 CLINICAL: Routine screening. Personal history of right breast cancer. Comparison is made to exams dated: 02/02/2023 mammogram - [facility], 01/19/2022 mammogram, and 01/13/2021 mammogram - [facility]. Both breasts are heterogeneously dense, which may obscure small masses (category c / 51-75% glandular tissue). Current study was also evaluated with a Computer Aided Detection (CAD) system. There are benign post operative findings in the right breast. No significant masses, calcifications, or other findings are seen in either breast. There has been no significant interval change. IMPRESSION: BENIGN There is no mammographic evidence of malignancy. A 1 year screening mammogram is recommended. This exam was interpreted at Station ID: [id number]. NOTE: For mammograms, a report in lay terms will be sent to the patient. Approximately 15% of breast malignancies will not be visualized mammographically. In the management of a palpable breast mass, a negative mammogram must not discourage biopsy of a clinically suspicious lesion. Electronically Signed By: Laura espinoza/leatha:02/05/2024 14:07:12 copy to: DAVINA COPELAND letter sent: Normal Exam ACR BI-RADS Category 2: Benign Finding(s) 3342F
== END ==
LOC: MAMMO 12:49
PROVIDERS: PCP Family Medicine; Referring Provider Family Medicine; Visit Provider Family Medicine
DX: Z12.31 Encounter for screening mammogram for malignant neoplasm of breast (principal); Z85.3 Personal history of malignant neoplasm of breast; R92.333 Mammographic heterogeneous density, bilateral breasts
CPT/HCPCS: 77063; 77067

== ENCOUNTER → 2024-04-12 12:38 | Outpatient (CLI) | payer OTHER, SELFPAY ==
--- NOTE | 2024-04-12 | DI.RAD.S_ITS ---
PROCEDURE: XR DEXA AXIAL SKELETON INDICATIONS: Age-related osteoporosis COMPARISON: [facility], , XR DEXA AXIAL SKELETON, 05/10/2023, 10:37. [facility], CR, XR DEXA AXIAL SKELETON, 05/06/2021, 10:16. FINDINGS: Lumbar Spine: Bone mineral density 0.9 and 1 g/cm2, T score -0.5, no statistically significant change compared to prior.. Left Hip: Bone mineral density 0.693 g/cm2, T score -2.0, no statistically significant change compared to prior. Left Femoral Neck: Bone mineral density is 0.530 g/cm2, T score -2.9. Right Hip: Bone mineral density 0.688 g/cm2, T score -2.1, increase in bone mineral density by 5%. Right Femoral Neck: Bone mineral density 0.574 g/cm2, T score -2.5. Fracture Risk Calculation (when applicable): 10-year fracture risk of a major osteoporotic fracture 15% and of a hip fracture 5.1%. (T score greater or equal to -1.0 to: NORMAL) (T score from -1.1 to -2.4: OSTEOPENIA) (T score less than or equal to -2.5: OSTEOPOROSIS) IMPRESSION: Osteoporosis by WHO classification. Follow-up guidelines as follows: Osteoporosis: Consider a repeat DEXA and Vertebral Fracture Assessment (VFA) exam in 2 years or sooner if medically necessary, to reassess this patient's status. Osteopenia: Consider a repeat DEXA in 2-3 years to reassess this patient's status, or if there is a new clinical indication. Normal: Consider a repeat DEXA in 5 years or sooner, or if there is a new clinical indication. All treatment decisions require clinical judgment and consideration of individual patient factors, including patient preferences, comorbidities, previous drug use, risk factors not captured in the FRAX model (e.g., frailty, falls, vitamin D deficiency, increased bone turnover, interval significant decline in bone density ) and possible under- or over-estimation of fracture risk by FRAX. In addition, the NOF Guide recommends that FDA-approved medical therapies be considered in postmenopausal women and men age >= 50 years with a: * Hip or vertebral (clinical or morphometric) fracture * T-score of <=-2.5 at the spine or hip * Ten-year fracture probability by FRAX of >= 3% for hip fracture or >=20% for major osteoporotic fracture. People with diagnosed cases of osteoporosis or at high risk for fracture should have regular bone mineral density tests. For patients eligible for Medicare, routine testing is allowed once every 2 years. The testing frequency can be increased to one year for patients who have rapidly progressing disease, those who are receiving or discontinuing medical therapy to restore bone mass, or have additional risk factors. Dictated by: Pio Herrera M.D. on 04/12/2024 at 14:34 Approved by: Pio Herrera M.D. on 04/12/2024 at 14:52
== END ==
LOC: RAD 12:38
PROVIDERS: PCP Family Medicine; Referring Provider Family Medicine; Visit Provider Family Medicine
DX: M81.0 Age-related osteoporosis without current pathological fracture (principal)
CPT/HCPCS: 77080

== ENCOUNTER → 2024-07-17 14:43 | Outpatient (CLI) | payer OTHER, SELFPAY ==
--- NOTE | 2024-07-17 14:47 | DI.RAD.S_ITS ---
PROCEDURE: XR LUMBAR SPINE 2-3V INDICATIONS: BACK PAIN TECHNIQUE: 3 views of the lumbar spine were acquired. COMPARISON: [facility], , L-SPINE 2-3 VIEWS, 08/05/2014, 12:33. FINDINGS: Lumbar spine curvature and alignment: Grade 1 L4-5 degenerative disc disease due to degenerative facet disease appreciated. This results in 4 mm L4 anterior subluxation. The remaining lumbar spine is anatomically aligned. Bones: There are no osseous abnormalities. Disc spaces: There is mild L2-3 , minimal L3-4 and mild L4-5 and L5-S1 degenerative disc disease appreciated. Moderate L4-5 and L5-S1 degenerative facet disease also noted. There is also mild degenerative change in both hips Intervertebral foramen: Grossly normal in width. Soft tissues: No soft tissue swelling, calcification or mass. IMPRESSION: Degeneration Dictated by: Daniel Atkinson M.D. on 07/18/2024 at 8:13 Approved by: Daniel Atkinson M.D. on 07/18/2024 at 8:15
[2024-07-17 16:20] LABS: Appearance Urine UA Clear; Bacteria Urine None Seen; Bilirubin Urine UA Negative (NEGATIVE); Color Urine UA Yellow; Glucose Urine UA NEGATIVE (Negative); Ketones Urine UA NEGATIVE (NEGATIVE); Leukocyte Esterase Urine UA NEGATIVE (NEGATIVE); Nitrite Urine UA NEGATIVE (Negative); Occult Blood Urine UA Negative (Negative); Protein Urine UA Negative (Negative); RBC Urine None Seen (0-5/HPF); Specific Gravity Urine UA 1.025 (1.000-1.035); Squamous Epithelial Cell Urine None Seen (0-5/HPF); Urine Volume 10mL (spun); Urobilinogen Urine UA 0.2 E.U./dL (0.2); WBC Urine None Seen (0-5/HPF); pH Urine UA 5.5 (4.5-8.0)
[2024-07-17 16:21] LABS: Calcium Oxalate Crystals Urine Few; Culture Indicated Urine Cult Not Indicated
== END ==
PROVIDERS: PCP Family Medicine; Referring Provider Family Medicine; Visit Provider Family Medicine
DX: M54.50 Low back pain, unspecified (principal)
CPT/HCPCS: 72100; 81001

== ENCOUNTER → 2025-03-28 15:09 | Outpatient (CLI) | payer OTHER, SELFPAY ==
--- NOTE | 2025-03-28 15:11 | DI.MG.S_ITS ---
MM screening mammo BI: 03/28/2025. BI-RADS: 2 CLINICAL: 79-year old female for bilateral screening mammogram. No Tyrer-Cuzick risk score calculation due to the patient's personal history of breast cancer. Patient reports a history of right breast carcinoma diagnosed at age 73. Status-post right lumpectomy with radiation therapy. No first-degree family history of breast cancer. The patient had a prior right breast biopsy. PRIOR EXAMS 02/05/2024, 02/02/2023, 01/31/2022, 01/19/2022, 01/13/2021, 12/31/2019, 01/31/2019, 12/14/2018, 12/10/2018, 12/03/2018, 11/29/2017, 11/16/2015. MAMMOGRAPHY TECHNIQUE: 2D and 3D (tomosynthesis) digital mammographic views obtained, with additional images as needed for full coverage. Current study was also evaluated with a Computer Aided Detection (CAD) system. DENSITY C. The breasts are heterogeneously dense, which may obscure small masses. MAMMOGRAPHY FINDINGS Right: Benign-appearing post-surgical changes noted on the right. There are no suspicious masses, calcifications, or other findings in the breast. Left: No suspicious mass, asymmetry, microcalcification, or other abnormality seen. IMPRESSION: Right * No evidence of malignancy with benign findings. Left * No evidence of malignancy. RECOMMENDATIONS Bilateral * Annual screening mammography. OVERALL ASSESSMENT CATEGORY BI-RADS-2: Benign. [employer] recommends annual screening mammography beginning at age 40 for women with average risk of breast cancer. ELECTRONICALLY SIGNED: Venita Alexis M.D. on 03/31/2025 at 07:49:03 AM PT Interpreting Station ID: [id number]
== END ==
PROVIDERS: PCP Family Medicine; Referring Provider Family Medicine; Visit Provider Family Medicine
DX: Z12.31 Encounter for screening mammogram for malignant neoplasm of breast (principal); Z85.3 Personal history of malignant neoplasm of breast; R92.333 Mammographic heterogeneous density, bilateral breasts
CPT/HCPCS: 77063; 77067